=== PATIENT | male | born 1945 | race Caucasian/White ===

== ENCOUNTER 2018-01-13 13:34 | Emergency (ER) | payer OTHER, SELFPAY ==
[2018-01-13] MEDS ORDERED: METHYLPREDNISOLONE 125 MG INJ ONE (13:51)
[2018-01-13] MEDS ORDERED: NA CHLORIDE 0.9% 1,000 ML ONE (13:52)
[2018-01-13] MEDS ORDERED: DIPHENHYDRAMINE 50 MG/ML VIAL ONE (13:52)
--- NOTE | 2018-01-13 16:01 | ER ---
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 Transition of care: patient was not received from another setting of care. Onset: The symptoms/episode began/occurred acutely, suddenly, 1 hour(s) ago. Anaphylaxis evaluation, angioedema beta donovan use. Onset of symptoms was January 13, 2018. Initial Sepsis Screen: Does the patient meet any 2 criteria? No. Patient's initial sepsis screen is negative. Does the patient have a suspected source of infection? No. Patient's initial sepsis screen is negative. Care prior to arrival: None. 13:50 Acuity: KASEY 2 hb 13:50 Method Of Arrival: Ambulatory hb Historical: - Allergies: 13:53 Peanut; tw2 13:53 Sulfa (Sulfonamide Antibiotics); tw2 13:53 amlodipine; tw2 - Home Meds: 13:53 losartan oral oral [Active]; atenolol 25 mg Oral tab .5 tab once daily [Active]; tw2 - PMHx: 13:53 Hypertension; Hyperlipidemia; tw2 - Immunization history:: Adult Immunizations up to date. - Social history:: Smoking status: Patient/guardian denies using tobacco. Screenin:55 Abuse screen: Denies threats or abuse. Denies injuries from another. Nutritional hb screening: No deficits noted. Tuberculosis screening: No symptoms or risk factors identified. Fall Risk None identified. Assessment: 13:46 General: Appears in no apparent distress. obese, Behavior is anxious. Pain: Denies tw2 pain. Neuro: Level of Consciousness is awake, alert, obeys commands, Oriented to person, place, time, situation. Cardiovascular: Denies chest pain, shortness of breath, Heart tones S1 S2 Capillary refill < 3 seconds Patient's skin is warm and dry. Respiratory: Airway is patent Respiratory effort is even, unlabored, Respiratory pattern is regular, symmetrical, Breath sounds are clear bilaterally. Denies cough. Respiratory: GI: No signs and/or symptoms were reported involving the gastrointestinal system. Abdomen is round obese, Bowel sounds present X 4 quads. : No signs and/or symptoms were reported regarding the genitourinary system. EENT: EENT: swelling of lips noted. Derm:. Musculoskeletal: Range of motion: intact in all extremities. 14:52 Reassessment: Patient appears in no apparent distress at this time. No changes from tw2 previously documented assessment. Patient and/or family updated on plan of care and expected duration. Pain level reassessed. Patient is alert, oriented x 3, equal unlabored respirations, skin warm/dry/pink. 15:30 Reassessment: Patient appears in no apparent distress at this time. No changes from hb previously documented assessment. Patient and/or family updated on plan of care and expected duration. Pain level reassessed. Patient is alert, oriented x 3, equal unlabored respirations, skin warm/dry/pink. Vital Signs: 13:55 BP 203 / 91; Pulse 66; Resp 17; Temp 97.9; Pulse Ox 100% on R/A; Pain 0/10; hb 14:52 BP 168 / 74; Pulse 61; Resp 17; Pulse Ox 98% on R/A; tw2 15:30 BP 171 / 81; Pulse 68; Resp 16; Pulse Ox 100% on R/A; Pain 0/10; hb ED Course: 13:38 Patient arrived in ED. mr 13:46 Arm band placed on. tw2 13:50 Maxwell Garland PA is PHCP. jr8 13:50 Adolfo Hercules MD is Attending Physician. jr8 13:50 Patient has correct armband on for positive identification. Bed in low position. Call hb light in reach. Side rails up X 1. 13:50 Inserted saline lock: 18 gauge in right antecubital area, using aseptic technique. hb Blood collected. 13:56 Ginna Patel, CELSA is Primary Nurse. hb 13:59 Triage completed. hb 14:55 No provider procedures requiring assistance completed. tw2 16:10 IV discontinued, intact, bleeding controlled, No redness/swelling at site. Pressure hb dressing applied. Administered Medications: 13:56 Drug: Benadryl 25 mg Route: IVP; Site: right antecubital; hb 15:15 Follow up: Response: No adverse reaction hb 13:56 Drug: SOLU-Medrol 125 mg Route: IVP; Site: right antecubital; hb 15:15 Follow up: Response: No adverse reaction hb 14:26 Drug: Pepcid 20 mg Route: IVP; Site: right antecubital; hb 15:15 Follow up: Response: No adverse reaction hb Outcome: 16:01 Discharge ordered by MD. morel 16:10 Discharged to home ambulatory, with significant other. hb 16:10 Condition: stable 16:10 Discharge instructions given to patient, Instructed on discharge instructions, follow up and referral plans. medication usage, Demonstrated understanding of instructions, follow-up care, medications, Prescriptions given X 1. 16:11 Patient left the ED. 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 hb 14:00 13:45 Transition of care: patient was not received from another setting of care. hb hb 14:00 13:45 Onset: The symptoms/episode began/occurred acutely, suddenly, 1 hour(s) ago, hb hb 14:00 13:45 Anaphylaxis evaluation, angioedema beta donovan use hb hb 14:00 13:45 Onset of symptoms was January 13, 2018 hb hb 14:00 13:45 Initial Sepsis Screen: Does the patient meet any 2 criteria? No. Patient's hb initial sepsis screen is negative. Does the patient have a suspected source of infection? No. Patient's initial sepsis screen is negative. hb 14:00 13:45 Care prior to arrival: None. hb hb 14:00 13:45 Method Of Arrival: Ambulatory hb hb 14:00 13:45 Acuity: KASEY 2 hb hb
--- NOTE | 2018-01-13 16:01 | EDPHYS ---
Physician Documentation [facility] Name: Rolf Hernandez Age: 72 yrs Sex: Male : 1945 Arrival Date: 01/13/2018 Time: 13:38 Bed 2 Private MD: ED Physician Adolfo Hercules HPI: 01/13 14:50 This 72 yrs old Male presents to ER via Ambulatory with complaints of jr8 Allergic Reaction. 14:50 Onset: The symptoms/episode began/occurred acutely, today. Possible causes: Amlodipine jr8 . Severity of symptoms: At their worst the symptoms were moderate in the emergency department the symptoms are unchanged. The patient has not experienced similar symptoms in the past. The patient has not recently seen a physician. Patient stated that he was just started on amlodipine. To first dose today. Started to have lower lip swelling and right sided cheek swelling . Historical: - Allergies: 13:53 Peanut; tw2 13:53 Sulfa (Sulfonamide Antibiotics); tw2 13:53 amlodipine; tw2 - Home Meds: 13:53 losartan oral oral [Active]; atenolol 25 mg Oral tab .5 tab once daily [Active]; tw2 - PMHx: 13:53 Hypertension; Hyperlipidemia; tw2 - Immunization history:: Adult Immunizations up to date. - Social history:: Smoking status: Patient/guardian denies using tobacco. ROS: 14:50 Eyes: Negative for injury, pain, redness, and discharge, ENT: Negative for injury, jr8 pain, and discharge, Neck: Negative for injury, pain, and swelling, Cardiovascular: Negative for chest pain, palpitations, and edema, Respiratory: Negative for shortness of breath, cough, wheezing, and pleuritic chest pain, Abdomen/GI: Negative for abdominal pain, nausea, vomiting, diarrhea, and constipation, Back: Negative for injury and pain, MS/Extremity: Negative for injury and deformity, Skin: Negative for injury, rash, and discoloration, Neuro: Negative for headache, weakness, numbness, tingling, and seizure. Exam: 14:50 Eyes: Pupils equal round and reactive to light, extra-ocular motions intact. Lids and jr8 lashes normal. Conjunctiva and sclera are non-icteric and not injected. Cornea within normal limits. Periorbital areas with no swelling, redness, or edema. ENT: Nares patent. No nasal discharge, no septal abnormalities noted. Tympanic membranes are normal and external auditory canals are clear. Oropharynx with no redness, swelling, or masses, exudates, or evidence of obstruction, uvula midline. Mucous membranes moist. Neck: Trachea midline, no thyromegaly or masses palpated, and no cervical lymphadenopathy. Supple, full range of motion without nuchal rigidity, or vertebral point tenderness. No Meningismus. Cardiovascular: Regular rate and rhythm with a normal S1 and S2. No gallops, murmurs, or rubs. Normal PMI, no JVD. No pulse deficits. Respiratory: Lungs have equal breath sounds bilaterally, clear to auscultation and percussion. No rales, rhonchi or wheezes noted. No increased work of breathing, no retractions or nasal flaring. Abdomen/GI: Soft, non-tender, with normal bowel sounds. No distension or tympany. No guarding or rebound. No evidence of tenderness throughout. Back: No spinal tenderness. No costovertebral tenderness. Full range of motion. Skin: Warm, dry with normal turgor. Normal color with no rashes, no lesions, and no evidence of cellulitis. MS/ Extremity: Pulses equal, no cyanosis. Neurovascular intact. Full, normal range of motion. Neuro: Awake and alert, GCS 15, oriented to person, place, time, and situation. Cranial nerves II-XII grossly intact. Motor strength 5/5 in all extremities. Sensory grossly intact. Cerebellar exam normal. Normal gait. 14:50 Head/face: Noted is swelling, that is moderate, of the lower lip and right cheek near crease of mouth. Vital Signs: 13:55 BP 203 / 91; Pulse 66; Resp 17; Temp 97.9; Pulse Ox 100% on R/A; Pain 0/10; hb 14:52 BP 168 / 74; Pulse 61; Resp 17; Pulse Ox 98% on R/A; tw2 15:30 BP 171 / 81; Pulse 68; Resp 16; Pulse Ox 100% on R/A; Pain 0/10; hb MDM: 13:51 Patient medically screened. [facility] 14:50 Data reviewed: vital signs, nurses notes. Counseling: I had a detailed discussion with Patricia the patient and/or guardian regarding: the historical points, exam findings, and any diagnostic results supporting the discharge/admit diagnosis. ED course: Swelling has decreased. Patient continues to not have throat swelling or tongue swelling. Feeling much better . 15:58 ED course: Patient remains stable in ED. Swelling continues to go down. Strict jr8 precautions to return if it worsens. Otherwise to follow up with PCP tomorrow . 01/13 13:51 Order name: IV; Complete Time: 13:56 jr8 Administered Medications: 13:56 Drug: Benadryl 25 mg Route: IVP; Site: right antecubital; hb 15:15 Follow up: Response: No adverse reaction hb 13:56 Drug: SOLU-Medrol 125 mg Route: IVP; Site: right antecubital; hb 15:15 Follow up: Response: No adverse reaction hb 14:26 Drug: Pepcid 20 mg Route: IVP; Site: right antecubital; hb 15:15 Follow up: Response: No adverse reaction hb Disposition: 16:25 Co-signature as Attending Physician, Adolfo Hercules MD. rn Disposition: 01/13/18 16:01 Discharged to Home. Impression: Angioneurotic edema. - Condition is Stable. - Discharge Instructions: Angioedema. - Prescriptions for Prednisone 20 mg Oral Tablet - take 2 tablet by ORAL route once daily for 5 days; 10 tablet. - Medication Reconciliation Form, Thank You Letter, Antibiotic Education, Prescription Opioid Use form. - Follow up: Private Physician; When: Tomorrow; Reason: Recheck today's complaints, Continuance of care, Re-evaluation by your physician. - Problem is new. - Symptoms have improved. - Notes: Pepcid over the counter. 20 mg by mouth twice a day Benadryl 25 mg by mouth throughout night Q4-6 hrs Signatures: Adolfo Hercules MD MD rn Roszak, Josh, PA PA jr8 Ginna Patel RN RN hb Mini Bynum RN RN tw2 Corrections: (The following items were deleted from the chart) 16:11 16:01 01/13/2018 16:01 Discharged to Home. Impression: Angioneurotic edema. Condition hb is Stable. Forms are Medication Reconciliation Form, Thank You Letter, Antibiotic Education, Prescription Opioid Use. Follow up: Private Physician; When: Tomorrow; Reason: Recheck today's complaints, Continuance of care, Re-evaluation by your physician. Problem is new. Symptoms have improved. jr8
[2018-01-13 16:44] VITALS: TEMP 97.9
[2018-01-13 16:46] VITALS: BP 171/81; O2SAT 100
== END 2018-01-13 16:11 | disposition home or self-care (01) ==
LOC: ER 13:34
DX: T78.3XXA Angioneurotic edema, initial encounter (principal); I10 Essential (primary) hypertension; E78.5 Hyperlipidemia, unspecified; Z88.2 Allergy status to sulfonamides; Z88.8 Allergy status to other drugs, medicaments and biological substances; Z91.010 Allergy to peanuts
CPT/HCPCS: 96374; 96375; 99284; J2930; J7030

== ENCOUNTER 2018-01-28 10:10 | Emergency (ER) | payer OTHER, SELFPAY ==
--- NOTE | 2018-01-28 12:08 | RAD REPORT ---
EXAM DESCRIPTION: RAD - Foot Left 3 View - 01/28/2018 11:22 am CLINICAL HISTORY: Foot pain, fall COMPARISON: Left ankle images July 2012 FINDINGS: Nondisplaced, nonangulated fractures are present at the second-fifth metatarsal shaft-head junction. No pathologic process at these fracture sites. Patient has fracture changes as well across the base of the first- fourth metatarsals. Articular surfaces are not involved in the second- fourth metatarsals. At the first metatarsal fracture does extend to the articular surface. . These fracture s are more uncertain in date. There does appear to be some remodeling change with incomplete healing. These are favored to be subacute with the distal fractures acute. Degenerative changes are present in the IP joints of the toes. Degenerative changes are present invol ving the second and third MTP joints. There is joint space narrowing at the first MTP joint. The cuneiform and cuboid bones are intact. Tarsal navicular bone is generally intact as well. Patient has gross destructive change at the ankle joint. There are innumerable small bony fragments along th e posterior and medial margin of the tibia. There is significant bone loss at the distal fibula. No n ormal talus seen. Talus is likely dislocated or displaced to the lateral margin of the joint space. T he tibia articulates with the calcaneus. There is deformity and large concave contour to the anterior superior margin of the calcaneus. There is widening of the joint space between the calcaneus and dinorah us fragments with the cuboid and navicular bones. Patient has a large plantar spur. Prominent soft tissue swelling around the foot and ankle. No air or foreign body. IMPRESSION: Nondisplaced, nonangulated fractures of the second- fifth metatarsals at the shaft - hea d junction. These are believed to be acute. Fractures at the base of the first- fourth metatarsals with the first metatarsal fracture involving t he articular surface. Age is less definitive but probably subacute or chronic and incompletely healed . Charcot joint destructive changes at the ankle. Talus is deformed in shape and laterally displaced. D eformed articular surface of the tibia articulates with concave deformity of the anterior superior ca lcaneus.
--- NOTE | 2018-01-28 12:43 | EDPHYS ---
Physician Documentation [facility] Name: Rolf Hernandez Age: 72 yrs Sex: Male : 1945 Arrival Date: 01/28/2018 Time: 10:13 Bed 13 Private MD: Out, [facility] ED Physician Gregory Alarcon HPI: 01/28 11:55 This 72 yrs old Male presents to ER via Wheelchair with complaints of Foot jr8 Injury. 11:55 The patient presents with swelling, bruising . The complaints affect the left foot. jr8 Context: The problem was sustained at home, resulted from the patient falling. Onset: The symptoms/episode began/occurred acutely, 1 week(s) ago. Modifying factors: The symptoms are alleviated by nothing. the symptoms are aggravated by nothing. Associated signs and symptoms: The patient has no apparent associated signs or symptoms. Severity of symptoms: At their worst the symptoms were mild, in the emergency department the symptoms are unchanged. The patient has not experienced similar symptoms in the past. The patient has not recently seen a physician. Patient stated that the swelling and bruising has gone down. No pain. Has some skin tears on top of foot that showed up from wearing sock. Wants to make sure those tears do not get infected. History of cellulitis with osteo in past . Historical: - Allergies: 10:25 amlodipine; aj 10:25 Peanut; aj 10:25 Sulfa (Sulfonamide Antibiotics); aj - Home Meds: 10:25 atenolol 25 mg Oral tab 0.5 tab once daily [Active]; losartan Oral [Active]; aj - PMHx: 10:25 Hypertension; Hyperlipidemia; aj - Immunization history:: Adult Immunizations up to date. - Social history:: Smoking status: Patient/guardian denies using tobacco. - Ebola Screening: : Patient negative for fever greater than or equal to 101.5 degrees Fahrenheit, and additional compatible Ebola Virus Disease symptoms Patient denies exposure to infectious person Patient denies travel to an Ebola-affected area in the 21 days before illness onset. ROS: 11:55 Eyes: Negative for injury, pain, redness, and discharge, ENT: Negative for injury, jr8 pain, and discharge, Neck: Negative for injury, pain, and swelling, Cardiovascular: Negative for chest pain, palpitations, and edema, Respiratory: Negative for shortness of breath, cough, wheezing, and pleuritic chest pain, Abdomen/GI: Negative for abdominal pain, nausea, vomiting, diarrhea, and constipation, Back: Negative for injury and pain, Neuro: Negative for headache, weakness, numbness, tingling, and seizure. 11:55 MS/extremity: Positive for ecchymosis, swelling, of the left foot. 11:55 Skin: Positive for avulsion, of the dorsum left foot . Exam: 11:55 Cardiovascular: Regular rate and rhythm with a normal S1 and S2. No gallops, murmurs, jr8 or rubs. Normal PMI, no JVD. No pulse deficits. Respiratory: Lungs have equal breath sounds bilaterally, clear to auscultation and percussion. No rales, rhonchi or wheezes noted. No increased work of breathing, no retractions or nasal flaring. MS/ Extremity: Pulses equal, no cyanosis. Neurovascular intact. Full, normal range of motion. Neuro: Awake and alert, GCS 15, oriented to person, place, time, and situation. Cranial nerves II-XII grossly intact. Motor strength 5/5 in all extremities. Sensory grossly intact. Cerebellar exam normal. Normal gait. 11:55 Skin: Patient has swollen ecchymotic left foot. Small skin avulsion's noted to dorsum of foot. Mild erythema to red foot noted. Non tender to palpation. Minimal warmth felt . Vital Signs: 10:25 BP 145 / 76; Pulse 68; Resp 19; Temp 97.6; Pulse Ox 99% on R/A; Weight 104.33 kg; aj Height 6 ft. 2 in. (187.96 cm); 12:06 BP 163 / 66; Pulse 64; Resp 18; Pulse Ox 100% on R/A; ae1 13:05 BP 163 / 66; Pulse 64; Resp 18; Pulse Ox 99% on R/A; ae1 10:25 Body Mass Index 29.53 (104.33 kg, 187.96 cm) aj MDM: 10:28 Patient medically screened. jr8 12:37 Data reviewed: vital signs, nurses notes, radiologic studies, plain films, and as a jr8 result, I will discharge patient. Data interpreted: Pulse oximetry: on room air is 100 %. Interpretation: normal. Counseling: I had a detailed discussion with the patient and/or guardian regarding: the historical points, exam findings, and any diagnostic results supporting the discharge/admit diagnosis, radiology results, the need for outpatient follow up, a orthopedic surgeon, to return to the emergency department if symptoms worsen or persist or if there are any questions or concerns that arise at home. ED course: Patient has ortho boot for that foot at home. Will let him go home and utilize that. To follow up with Ortho . 01/28 10:54 Order name: XRAY Foot LEFT 3 View; Complete Time: 12:10 jr8 01/28 10:54 Order name: Wound Care; Complete Time: 11:35 jr8 01/28 10:54 Order name: Wound dressing; Complete Time: 12:04 jr8 Administered Medications: No medications were administered Disposition: 01/28/18 12:42 Discharged to Home. Impression: Fracture of left metatarsals . - Condition is Stable. - Discharge Instructions: Metatarsal Fracture, Undisplaced. - Prescriptions for Keflex 500 mg Oral Capsule - take 1 capsule by ORAL route every 8 hours for 10 days; 30 capsule. - Medication Reconciliation Form, Thank You Letter, Antibiotic Education, Prescription Opioid Use form. - Follow up: Private Physician; When: 2 - 3 days; Reason: Recheck today's complaints, Continuance of care, Re-evaluation by your physician. - Problem is new. - Symptoms have improved. Addendum: 01/30/2018 13:27 Co-signature as Attending Physician, Gregory Alarcon MD. g s Signatures: Dispatcher [employer] EDJanine Nelson RN RN aj Roszak, Josh, PA PA jr8 Isai Corado RN RN ae1 Gregory Alarcon MD MD Corrections: (The following items were deleted from the chart) 01/28 12:59 12:30 Splint ordered. jr8 ae1 13:06 12:42 01/28/2018 12:42 Discharged to Home. Impression: Fracture of left metatarsals . ae1 Condition is Stable. Forms are Medication Reconciliation Form, Thank You Letter, Antibiotic Education, Prescription Opioid Use. Follow up: Private Physician; When: 2 - 3 days; Reason: Recheck today's complaints, Continuance of care, Re-evaluation by your physician. Problem is new. Symptoms have improved. jr8
--- NOTE | 2018-01-28 12:43 | ER ---
Nurse's Notes [facility] Name: Rolf Hernandez Age: 72 yrs Sex: Male : 1945 Arrival Date: 01/28/2018 Time: 10:13 Bed 13 Private MD: Out, [facility] Diagnosis: Fracture of left metatarsals Presentation: 01/28 10:22 Presenting complaint: Patient states: Sent by [place] [facility] for evaluation of left foot aj after patient slip and fall 1 week ago. Patient reports bruising has improved but abrasions to top of foot are not getting better. Transition of care: patient was not received from another setting of care. Onset of symptoms was January 19, 2018. Risk Assessment: Do you want to hurt yourself or someone else? Patient reports no desire to harm self or others. Care prior to arrival: None. 10:22 Method Of Arrival: Wheelchair aj 10:22 Acuity: KASEY 3 aj 11:07 Initial Sepsis Screen: Does the patient meet any 2 criteria? No. Patient's initial ae1 sepsis screen is negative. Does the patient have a suspected source of infection? Yes: Skin breakdown/wound. Triage Assessment: 10:25 General: Appears in no apparent distress. comfortable, Behavior is calm, cooperative, aj appropriate for age. Pain: Denies pain. Neuro: Level of Consciousness is awake, alert, obeys commands, Oriented to person, place, time, situation, Appropriate for age. Respiratory: Airway is patent Respiratory effort is even, unlabored, Respiratory pattern is regular, symmetrical. Derm: Skin is intact, is healthy with good turgor, Skin is pink, warm \T\ dry. normal. Musculoskeletal: Reports Swelling in left foot. Injury Description: Abrasion sustained to left foot. Historical: - Allergies: 10:25 amlodipine; aj 10:25 Peanut; aj 10:25 Sulfa (Sulfonamide Antibiotics); aj - Home Meds: 10:25 atenolol 25 mg Oral tab 0.5 tab once daily [Active]; losartan Oral [Active]; aj - PMHx: 10:25 Hypertension; Hyperlipidemia; aj - Immunization history:: Adult Immunizations up to date. - Social history:: Smoking status: Patient/guardian denies using tobacco. - Ebola Screening: : Patient negative for fever greater than or equal to 101.5 degrees Fahrenheit, and additional compatible Ebola Virus Disease symptoms Patient denies exposure to infectious person Patient denies travel to an Ebola-affected area in the 21 days before illness onset. Screenin:06 Abuse screen: Denies threats or abuse. Denies injuries from another. Nutritional ae1 screening: No deficits noted. Tuberculosis screening: No symptoms or risk factors identified. Fall Risk Fall in past 12 months (25 points). Secondary diagnosis (15 points) impaired mobility, No IV (0 pts). Ambulatory Aid- Crutches/Cane/Walker (15 pts). Gait- Impaired (20 pts.). Mental Status- Oriented to own ability (0 pts). Assessment: 10:50 General: Appears in no apparent distress. uncomfortable, Behavior is calm, cooperative. ae1 Pain: Denies pain. Neuro: Level of Consciousness is awake, alert, obeys commands, Oriented to person, place, time, situation. Cardiovascular: Heart tones S1 S2 present. Respiratory: Airway is patent Breath sounds are clear bilaterally. GI: No signs and/or symptoms were reported involving the gastrointestinal system. : No signs and/or symptoms were reported regarding the genitourinary system. EENT: No signs and/or symptoms were reported regarding the EENT system. Derm: Wound noted left foot Wound is Moderate swelling, redness and mild warmth to the left foot. Several dry, healing abrasions to the left dorsal side of the foot. Musculoskeletal: Swelling present in right foot and left foot. 11:03 Reassessment: Radiology at bedside obtaining imaging. ae1 Vital Signs: 10:25 BP 145 / 76; Pulse 68; Resp 19; Temp 97.6; Pulse Ox 99% on R/A; Weight 104.33 kg; aj Height 6 ft. 2 in. (187.96 cm); 12:06 BP 163 / 66; Pulse 64; Resp 18; Pulse Ox 100% on R/A; ae1 13:05 BP 163 / 66; Pulse 64; Resp 18; Pulse Ox 99% on R/A; ae1 10:25 Body Mass Index 29.53 (104.33 kg, 187.96 cm) aj ED Course: 10:13 Patient arrived in ED. sb2 10:13 Out, [facility] is Private Physician. sb2 10:24 Triage completed. aj 10:25 Arm band placed on right wrist. Patient placed in an exam room. aj 10:27 Maxwell Garland PA is PHCP. jr8 10:27 Gregory Alarcon MD is Attending Physician. jr8 10:35 Isai Corado, RN is Primary Nurse. ae1 11:07 Bed in low position. Call light in reach. Side rails up X 1. Adult w/ patient. Pulse ox ae1 on. NIBP on. 11:22 XRAY Foot LEFT 3 View In Process Unspecified. EDMS 12:07 Dressings: Kerlix X 2; left foot non-adherent dressing x 1 left foot Cleansed left foot ae1 with sterile saline and Hibiclens. 13:05 No provider procedures requiring assistance completed. Patient did not have IV access ae1 during this emergency room visit. Administered Medications: No medications were administered Outcome: 12:42 Discharge ordered by . jr8 13:06 Discharged to home via wheelchair, with significant other. ae1 13:06 Condition: stable 13:06 Discharge instructions given to patient, significant other, Instructed on discharge instructions, follow up and referral plans. medication usage, Demonstrated understanding of instructions, Prescriptions given X 1. 13:06 Patient left the ED. ae1 Signatures: Dispatcher [employer] EDMS Tamela Hernandez RN RN dm5 Janine Mcdaniel RN RN aj Roszak, Josh, PA PA jr8 Isai Corado, RN RN ae1 Aleida Flood sb2 Corrections: (The following items were deleted from the chart) 12:06 12:04 Dressings: Kerlix X 2; lateral aspect of left calf, left lateral ankle, lateral dm5 aspect of left foot, left Achilles, left heel, left medial ankle, medial aspect of left foot, anterior aspect of left ankle and dorsum of left foot non-adherent dressing x 1 left foot Cleansed left foot with Hibiclens and sterile saline. dm5 12:07 12:05 BP 163 / 66; Pulse 67bpm; Resp 18bpm; Pulse Ox 98% RA; dm5 ae1
[2018-01-28 13:10] VITALS: TEMP 97.6
[2018-01-28 13:11] VITALS: BP 163/66
[2018-01-28 13:12] VITALS: O2SAT 99
== END 2018-01-28 13:06 | disposition home or self-care (01) ==
LOC: ER 10:10
DX: S92.302A Fracture of unspecified metatarsal bone(s), left foot, initial encounter for closed fracture (principal); W19.XXXA Unspecified fall, initial encounter; Y93.9 Activity, unspecified; Y92.009 Unspecified place in unspecified non-institutional (private) residence as the place of occurrence of the external cause; Z88.2 Allergy status to sulfonamides; Z88.8 Allergy status to other drugs, medicaments and biological substances; Z91.010 Allergy to peanuts; I10 Essential (primary) hypertension; E78.5 Hyperlipidemia, unspecified
CPT/HCPCS: 99283

== ENCOUNTER 2018-07-25 16:05 | Emergency (ER) | payer OTHER ==
[2018-07-25] MEDS ORDERED: DIPHENHYDRAMINE 50 MG/ML VIAL ONE (17:48)
[2018-07-25] MEDS ORDERED: METHYLPREDNISOLONE 125 MG INJ ONE (17:48)
[2018-07-25] MEDS ORDERED: FAMOTIDINE 20 MG/2 ML VIAL IV ONE (17:48)
--- NOTE | 2018-07-25 18:28 | ER ---
Nurse's Notes [facility] Name: Rolf Hernandez Age: 73 yrs Sex: Male : 1945 Arrival Date: 07/25/2018 Time: 16:07 Bed 2 Private MD: Out, [facility] Diagnosis: Angioedema Presentation: 07/25 16:09 Presenting complaint: Patient states: Swelling to right upper lip and cheek that sg started about 0345 this morning but has gotten worse today, last does of benadryl taken at 1330 today, no relief, pt denies any changes in mediation or diet, unsure what has caused the swelling, denies any insect bites, Denies SOB or CP at this time,denies FEVER/N/V/Diarrhea. Transition of care: patient was not received from another setting of care. Onset: The symptoms/episode began/occurred gradually, 13 hour(s) ago. Anaphylaxis evaluation, no signs or symptoms of anaphylaxis were noted. Onset of symptoms was July 25, 2018. Risk Assessment: Do you want to hurt yourself or someone else? Patient reports no desire to harm self or others. Initial Sepsis Screen: Does the patient meet any 2 criteria? No. Patient's initial sepsis screen is negative. Does the patient have a suspected source of infection? No. Patient's initial sepsis screen is negative. Care prior to arrival: None. 16:09 Method Of Arrival: Ambulatory 16:09 Acuity: KASEY 4 sg Historical: - Allergies: 16:12 amlodipine; sg 16:12 Peanut; sg 16:12 Sulfa (Sulfonamide Antibiotics); sg - Home Meds: 16:12 atenolol 25 mg Oral tab 0.5 tab once daily [Active]; losartan Oral [Active]; sg - PMHx: 16:12 Hyperlipidemia; Hypertension; sg - Immunization history:: Adult Immunizations up to date. - Social history:: Smoking status: Patient/guardian denies using tobacco. - Ebola Screening: : Patient negative for fever greater than or equal to 101.5 degrees Fahrenheit, and additional compatible Ebola Virus Disease symptoms Patient denies exposure to infectious person Patient denies travel to an Ebola-affected area in the 21 days before illness onset No symptoms or risks identified at this time. - Family history:: not pertinent. - Hospitalizations: : No recent hospitalization is reported. Screenin:53 Abuse screen: Denies threats or abuse. Denies injuries from another. Nutritional jl7 screening: No deficits noted. Tuberculosis screening: No symptoms or risk factors identified. Fall Risk IV access (20 points). Assessment: 17:30 General: Appears in no apparent distress. uncomfortable, Behavior is calm, cooperative, jl7 appropriate for age. Pain: Denies pain. Neuro: Level of Consciousness is awake, alert, obeys commands, Oriented to person, place, time, situation. Cardiovascular: Denies chest pain, Heart tones S1 S2 present Patient's skin is warm and dry. Respiratory: Airway is patent Respiratory effort is even, unlabored, Respiratory pattern is regular, symmetrical, Breath sounds are clear bilaterally. Denies shortness of breath. GI: No signs and/or symptoms were reported involving the gastrointestinal system. : No signs and/or symptoms were reported regarding the genitourinary system. EENT: No signs and/or symptoms were reported regarding the EENT system. Derm: Right sided upper and lower lip swelling. 18:18 Reassessment: Patient and/or family updated on plan of care and expected duration. Pain jl7 level reassessed. Patient is alert, oriented x 3, equal unlabored respirations, skin warm/dry/pink. Patient states symptoms have improved. Vital Signs: 16:11 BP 187 / 79; Pulse 88; Resp 18; Temp 97.7; Pulse Ox 100% on R/A; Weight 95.25 kg (R); sg Height 6 ft. 2 in. (187.96 cm); Pain 4/10; 17:53 BP 163 / 79; Pulse 76; Resp 16 S; Pulse Ox 100% on R/A; jl7 18:18 BP 160 / 75; Pulse 75; Resp 16 S; Pulse Ox 100% on R/A; jl7 16:11 Body Mass Index 26.96 (95.25 kg, 187.96 cm) ED Course: 16:07 Patient arrived in ED. sb2 16:08 Out, [facility] is Private Physician. sb2 16:09 Arm band placed on. sg 16:11 Triage completed. sg 17:15 Adolfo Hercules MD is Attending Physician. rn 17:38 Sky Lacy RN is Primary Nurse. jl7 17:40 Inserted saline lock: 20 gauge in right antecubital area, using aseptic technique. jl7 17:53 Patient has correct armband on for positive identification. Bed in low position. Call jl7 light in reach. Side rails up X 1. Pulse ox on. NIBP on. 18:18 No provider procedures requiring assistance completed. jl7 18:33 IV discontinued, intact, bleeding controlled, No redness/swelling at site. Pressure jl7 dressing applied. Administered Medications: 17:45 Drug: SOLU-Medrol 125 mg Route: IVP; Site: right antecubital; jl7 18:15 Follow up: Response: No adverse reaction; Marked relief of symptoms jl7 17:46 Drug: Benadryl 25 mg Route: IVP; Site: right antecubital; jl7 18:15 Follow up: Response: No adverse reaction; Marked relief of symptoms jl7 17:50 Drug: Pepcid 20 mg Route: IVP; Site: right antecubital; jl7 18:15 Follow up: Response: No adverse reaction; Marked relief of symptoms jl7 Outcome: 18:27 Discharge ordered by . rn 18:33 Discharged to home ambulatory. jl7 18:33 Condition: stable 18:33 Discharge instructions given to patient, family, Instructed on discharge instructions, follow up and referral plans. medication usage, Demonstrated understanding of instructions, follow-up care, medications, Prescriptions given X 1. 18:33 Patient left the ED. jl7 Signatures: Jean Carlos Burnham RN RN Adolfo Hercules MD MD rn Leal, Jahala, RN RN jl7 Aleida Flood2
--- NOTE | 2018-07-25 18:28 | EDPHYS ---
Physician Documentation [facility] Name: Rolf Hernandez Age: 73 yrs Sex: Male : 1945 Arrival Date: 07/25/2018 Time: 16:07 Bed 2 Private MD: Out, [facility] ED Physician Adolfo Hercules HPI: 07/25 17:26 This 73 yrs old Male presents to ER via Ambulatory with complaints of rn Allergic Reaction. 17:26 The patient presents with localized swelling, swelling of the lips. Onset: The rn symptoms/episode began/occurred yesterday. Associated signs and symptoms: Pertinent positives: swelling, Pertinent negatives: abdominal pain, Altered mental status chest pain, dysphagia, fever, hives, rash, shortness of breath, Syncope vomiting. Possible causes: ARB. Severity of symptoms: At their worst the symptoms were mild in the emergency department the symptoms have improved. The patient has experienced a previous episode. REports has happened once before, was blamed on blood pressure medication, switched from lisinopril to losartan, has been on it for some time, no rash, no new food/medication/change, no sob, no tongue swelling, no vomiting/abd pain, began yesterday and now slightly improved. . Historical: - Allergies: 16:12 amlodipine; sg 16:12 Peanut; sg 16:12 Sulfa (Sulfonamide Antibiotics); sg - Home Meds: 16:12 atenolol 25 mg Oral tab 0.5 tab once daily [Active]; losartan Oral [Active]; sg - PMHx: 16:12 Hyperlipidemia; Hypertension; sg - Immunization history:: Adult Immunizations up to date. - Social history:: Smoking status: Patient/guardian denies using tobacco. - Ebola Screening: : Patient negative for fever greater than or equal to 101.5 degrees Fahrenheit, and additional compatible Ebola Virus Disease symptoms Patient denies exposure to infectious person Patient denies travel to an Ebola-affected area in the 21 days before illness onset No symptoms or risks identified at this time. - Family history:: not pertinent. - Hospitalizations: : No recent hospitalization is reported. ROS: 17:26 Constitutional: Negative for fever, chills, and weight loss, Eyes: Negative for injury, rn pain, redness, and discharge, ENT: + lip swelling Neck: Negative for injury, pain, and swelling, Cardiovascular: Negative for chest pain, palpitations, and edema, Respiratory: Negative for shortness of breath, cough, wheezing, and pleuritic chest pain, Abdomen/GI: Negative for abdominal pain, nausea, vomiting, diarrhea, and constipation, MS/Extremity: Negative for injury and deformity, Skin: Negative for injury, rash, and discoloration, Neuro: Negative for headache, weakness, numbness, tingling, and seizure. Exam: 17:26 Constitutional: This is a well developed, well nourished patient who is awake, alert, rn and in no acute distress. Head/Face: Normocephalic, atraumatic. Eyes: Pupils equal round and reactive to light, extra-ocular motions intact. Lids and lashes normal. Conjunctiva and sclera are non-icteric and not injected. Cornea within normal limits. Periorbital areas with no swelling, redness, or edema. ENT: + upper lip swelling and edema, no tongue swelling Respiratory: Lungs have equal breath sounds bilaterally, clear to auscultation and percussion. No rales, rhonchi or wheezes noted. No increased work of breathing, no retractions or nasal flaring. Skin: Warm, dry with normal turgor. Normal color with no rashes, no lesions, and no evidence of cellulitis. Neuro: Awake and alert, GCS 15, oriented to person, place, time, and situation. Cranial nerves II-XII grossly intact. Motor strength 5/5 in all extremities. Sensory grossly intact. Cerebellar exam normal. Normal gait. Vital Signs: 16:11 BP 187 / 79; Pulse 88; Resp 18; Temp 97.7; Pulse Ox 100% on R/A; Weight 95.25 kg (R); sg Height 6 ft. 2 in. (187.96 cm); Pain 4/10; 17:53 BP 163 / 79; Pulse 76; Resp 16 S; Pulse Ox 100% on R/A; jl7 18:18 BP 160 / 75; Pulse 75; Resp 16 S; Pulse Ox 100% on R/A; jl7 16:11 Body Mass Index 26.96 (95.25 kg, 187.96 cm) sg MDM: 17:15 Patient medically screened. rn 18:25 Differential diagnosis: angioedema. Data reviewed: vital signs, nurses notes, and as a rn result, I will discharge patient. Counseling: I had a detailed discussion with the patient and/or guardian regarding: the historical points, exam findings, and any diagnostic results supporting the discharge/admit diagnosis, the need for outpatient follow up, to return to the emergency department if symptoms worsen or persist or if there are any questions or concerns that arise at home. Response to treatment: the patient's symptoms have markedly improved after treatment, and as a result, I will discharge patient. Special discussion: I discussed with the patient/guardian in detail that at this point there is no indication for admission to the hospital. It is understood, however, that if the symptoms persist or worsen the patient needs to return immediately for re-evaluation. Based on the history and exam findings, there is no indication for further emergent testing or inpatient evaluation. I discussed with the patient/guardian the need to see the primary care provider for further evaluation of the symptoms. ED course: Swelling improved/decreased shortly after steroids/benadryl, symptoms present since yesterday and improving, will stop losartan and dc with steroids/benadryl and pcp f/u. Return precautions given and understood. Has had this before when had ACEI angioedema, to watch over him and low threshold for return.. 07/25 17:25 Order name: IV Start; Complete Time: 17:50 rn Administered Medications: 17:45 Drug: SOLU-Medrol 125 mg Route: IVP; Site: right antecubital; jl7 18:15 Follow up: Response: No adverse reaction; Marked relief of symptoms jl7 17:46 Drug: Benadryl 25 mg Route: IVP; Site: right antecubital; jl7 18:15 Follow up: Response: No adverse reaction; Marked relief of symptoms jl7 17:50 Drug: Pepcid 20 mg Route: IVP; Site: right antecubital; jl7 18:15 Follow up: Response: No adverse reaction; Marked relief of symptoms jl7 Disposition: 07/25/18 18:27 Discharged to Home. Impression: Angioedema. - Condition is Stable. - Discharge Instructions: Angioedema. - Prescriptions for Prednisone 20 mg Oral Tablet - take 3 tablet by ORAL route once daily for 5 days; 15 tablet. - Medication Reconciliation Form, Thank You Letter, Antibiotic Education, Prescription Opioid Use form. - Follow up: Private Physician; When: As needed; Reason: Recheck today's complaints, Re-evaluation by your physician. - Problem is new. - Symptoms have improved. Signatures: Jean Carlos Burnham RN RN sg Nieto, Roman, MD MD rn Leal, Jahala, RN RN jl7 Corrections: (The following items were deleted from the chart) 18:33 18:27 07/25/2018 18:27 Discharged to Home. Impression: Angioedema. Condition is Stable. jl7 Forms are Medication Reconciliation Form, Thank You Letter, Antibiotic Education, Prescription Opioid Use. Follow up: Private Physician; When: As needed; Reason: Recheck today's complaints, Re-evaluation by your physician. Problem is new. Symptoms have improved. rn
[2018-07-25 23:45] VITALS: TEMP 97.7; O2SAT 100
[2018-07-25 23:47] VITALS: BP 160/75
== END 2018-07-25 18:33 | disposition home or self-care (01) ==
LOC: ER 16:05
DX: T78.3XXA Angioneurotic edema, initial encounter (principal); I10 Essential (primary) hypertension; E78.5 Hyperlipidemia, unspecified; Z79.899 Other long term (current) drug therapy
CPT/HCPCS: 96374; 96375; 99284; J2930

== ENCOUNTER 2021-07-23 08:44 | Emergency (ER) | payer OTHER ==
[2021-07-23] MEDS ORDERED: NA CHLORIDE 0.9% 1,000 ML ONE (09:10)
[2021-07-23 09:29] LABS: Absolute Lymphocytes (CBC) 0.6 K/uL (0.7-4.9); Basophils % 0.6 % (0-1.3); Hematocrit 42.7 % (39.6-49.0); Lymphocytes % 5.4 % (15.3-44.8); MPV 6.3 fL (7.6-11.3); RBC Red Blood Cell Count 4.92 M/uL (4.33-5.43)
[2021-07-23 09:44] LABS: Potassium 4.4 mmol/L (3.5-5.1)
--- NOTE | 2021-07-23 10:02 | RAD REPORT ---
EXAM DESCRIPTION: CT - Stone Protocol - 07/23/2021 9:49 am CLINICAL HISTORY: back pain COMPARISON: No comparisons TECHNIQUE: Axial 3 mm thick images were obtained without oral or IV contrast. The [id number] span s the entirety of the system including uppermost abdomen and lung bases. All CT scans are performed using dose optimization technique as appropriate and may include automated exposure control or mA/KV adjustment according to patient size. FINDINGS: No hydronephrosis is present and no obstructing ureteral calculi. A 5 millimeter calcifica tion in the right renal hilum is suspected to be vascular but could be within a calyx without causing focal dilatation. No suspicious renal masses. Isodense masses and pyelonephritis are not excluded on a stone protocol CT scan. No significant adrenal finding. No urinary bladder suspicious finding. Liver shows a lobulated capsule contour. In the lateral mid and upper right lobe segment VIII there i s an ill-defined 7.5 centimeter low-density mass suspicious for malignant process. Mass is not fully assessed on a noncontrast study. No other liver lesion confirmed. Left lobe is relatively prominent. Collective findings may indicate cirrhosis with onset of hepatocellular carcinoma. No splenomegaly or focal splenic finding. No acute pancreatic process. At least 1 small gallstone is seen near the neck of a normal-sized gallbladder. No biliary tree dilatation. Sigmoid diverticulosis is present without diverticulitis. No acute GI findings seen. Small amount of ascites present. There is no free air or pneumatosis. No hernia, mass or bulky lymphadenopathy noted. Disc and bone degenerative changes are present. Slight wedging of the T10 and L1 vertebral bodies not ed without an acute fracture component identifiable. No clearly pathologic bone finding seen. Advance d degenerative change seen in the disc, endplates and facet joints at L5-S1. IMPRESSION: No hydronephrosis, obstructing calculus or acute finding identified. Large mass lesion in the right lobe liver at least 7 cm in size. Liver shows a nodular capsule contou r. 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 Small amount of ascites. No acute GI process. Isodense masses and pyelonephritis are not excluded on stone protocol technique.
[2021-07-23 10:20] LABS: Blood Morphology Comment NOT SEEN (NOT SEEN); Platelet Estimate ADEQ; White Blood Cell Scan OK (OK)
--- NOTE | 2021-07-23 10:30 | EDPHYS ---
Physician Documentation [facility] Name: Rolf Hernandez Age: 76 yrs Sex: Male : 1945 Arrival Date: 07/23/2021 Time: 08:46 Bed 15 Private MD: ED Physician Adolfo Hercules HPI: 07/23 09:06 This 76 yrs old Male presents to ER via Wheelchair with complaints of Back rn Pain. 09:06 The patient presents with pain that is acute, with no known mechanism of injury. The rn symptoms are located in the low back. Onset: The symptoms/episode began/occurred 3 day(s) ago. The pain does not radiate. Associated signs and symptoms: Pertinent positives: constipation, Pertinent negatives: abdominal pain, chest pain, fever, hematuria, incontinence, nausea, numbness, tingling, urinary retention, vomiting. Modifying factors: The patient symptoms are alleviated by remaining still, the patient symptoms are aggravated by any movement. Severity of symptoms: At their worst the symptoms were moderate, in the emergency department the symptoms are unchanged. The patient has not experienced similar symptoms in the past. The patient has not recently seen a physician. Patient reports low back pain for the last 3 days, no direct injury or fall. Reports improves when not moving, but worse with movement. Is ambulatory and able to go up and down flight of stairs to go up to bedroom. States has been concerned about using the bathroom and ambulating so hasn't been eating or drinking much and feels dehydrated as well as constipation. No fever. No urinary symptoms.. Historical: - Allergies: 08:54 amlodipine; ll1 08:54 Peanut; ll1 08:54 Sulfa (Sulfonamide Antibiotics); ll1 - PMHx: 08:54 Hyperlipidemia; Hypertension; ll1 - Immunization history:: Client reports receiving the 2nd dose of the Covid vaccine. - Social history:: Smoking status: Patient denies any tobacco usage or history of. - Family history:: not pertinent. - Hospitalizations: : No recent hospitalization is reported. ROS: 09:06 Constitutional: Negative for fever, chills, and weight loss, Eyes: Negative for injury, rn pain, redness, and discharge, Neck: Negative for injury, pain, and swelling, Cardiovascular: Negative for chest pain, palpitations, and edema, Respiratory: Negative for shortness of breath, cough, wheezing, and pleuritic chest pain, Abdomen/GI: Negative for abdominal pain, nausea, vomiting, diarrhea, and constipation, Back: Negative for injury : Negative for injury, bleeding, discharge, and swelling, MS/Extremity: Negative for injury and deformity, Skin: Negative for injury, rash, and discoloration, Neuro: Negative for headache, weakness, numbness, tingling, and seizure. 09:06 All other systems are negative. Exam: 09:06 Constitutional: This is a well developed, well nourished patient who is awake, alert, rn and in no acute distress. Head/Face: Normocephalic, atraumatic. Cardiovascular: Regular rate and rhythm. No pulse deficits. Respiratory: No increased work of breathing, no retractions or nasal flaring. Abdomen/GI: Soft, non-tender, no masses, no peritoneal signs Skin: Warm, dry with normal turgor. Normal color with no rashes, no lesions, and no evidence of cellulitis. MS/ Extremity: Pulses equal, no cyanosis. Neurovascular intact. Full, normal range of motion. Equal circumference. Neuro: Awake and alert, GCS 15, oriented to person, place, time, and situation. Cranial nerves II-XII grossly intact. Motor strength 4/5 in all extremities. Sensory grossly intact. Cerebellar exam normal. Vital Signs: 08:55 BP 152 / 71; Pulse 98; Resp 20; Temp 97.6; Pulse Ox 100% ; Weight 99.79 kg; Height 6 ll1 ft. 2 in. (187.96 cm); 11:30 BP 138 / ???; Pulse 79; Resp 20; Pulse Ox 98% ; sm5 08:55 Body Mass Index 28.25 (99.79 kg, 187.96 cm) ll1 MDM: 08:52 Patient medically screened. rn 10:24 Differential diagnosis: arthritis, Fatigue Hydronephrosis Metastatic Disease Neoplasm rn Osteoarthritis spinal injury, sprain, Ureterolithiasis. Data reviewed: vital signs, nurses notes, lab test result(s), radiologic studies, CT scan, and as a result, I will discharge patient. Counseling: I had a detailed discussion with the patient and/or guardian regarding: the historical points, exam findings, and any diagnostic results supporting the discharge/admit diagnosis, lab results, radiology results, the need for outpatient follow up, to return to the emergency department if symptoms worsen or persist or if there are any questions or concerns that arise at home. Response to treatment: the patient's symptoms have mildly improved after treatment, and as a result, I will discharge patient. Special discussion: I discussed with the patient/guardian in detail that at this point there is no indication for admission to the hospital. It is understood, however, that if the symptoms persist or worsen the patient needs to return immediately for re-evaluation. Based on the history and exam findings, there is no indication for further emergent testing or inpatient evaluation. I discussed with the patient/guardian the need to see the [employer] for further evaluation of the symptoms. I discussed with the patient/guardian the need to see the primary care provider for further evaluation of the symptoms. ED course: No acute findings on CAT scan. Does show signs of liver cirrhosis and in addition to this a liver mass. Spoke with patient and states no previous CT imaging of the abdomen and is not aware if this is new or old. states daily drinker. Liver mass likely not causing back pain that is worse with movement and muscular in nature. Will DC home for outpatient work-up with PCP and GI follow-up. Patient states [facility] and plans on calling for appointment.. 07/23 09:03 Order name: CBC with Diff; Complete Time: 10: rn 07/23 09:03 Order name: Basic Metabolic Panel; Complete Time: 10:00 rn 07/23 09:03 Order name: CT Stone Protocol; Complete Time: 10:05 rn 07/23 10:21 Order name: CBC Smear Scan; Complete Time: : EDMS 07/23 09:03 Order name: IV Start; Complete Time: 09:20 rn Administered Medications: 09:20 Drug: NS 0.9% 1000 ml Route: IV; Rate: 1000 ml; Site: right antecubital; sm5 10:40 Drug: Flexeril (cyclobenzaprine) 10 mg Route: PO; sm5 Disposition Summary: 07/23/21 10:29 Discharge Ordered Location: Home rn Problem: new rn Symptoms: have improved rn Condition: Stable rn Diagnosis - Low back pain rn - Abnormal findings on diagnostic imaging of liver and biliary tract - Liver mass rn Followup: rn - With: Connor John MD - When: 5 - 6 days - Reason: Recheck today's complaints, Re-evaluation by your physician Discharge Instructions: - Discharge Summary Sheet rn - Acute Back Pain, Adult rn - Musculoskeletal Pain rn - Heat Therapy rn Forms: - Medication Reconciliation Form rn - Thank You Letter rn - 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
--- NOTE | 2021-07-23 10:30 | ER ---
Nurse's Notes [facility] Name: Rolf Hernandez Age: 76 yrs Sex: Male : 1945 Arrival Date: 07/23/2021 Time: 08:46 Bed 15 Private MD: Diagnosis: Low back pain;Abnormal findings on diagnostic imaging of liver and biliary tract-Liver mass Presentation: 07/23 08:55 Chief complaint: Patient states: Mid back pain for 3 days (worse than usual) with ll1 constipation. Coronavirus screen: Vaccine status: Patient reports receiving the 2nd dose of the covid vaccine. Client denies travel out of the [place] in the last 14 days. At this time, the client does not indicate any symptoms associated with coronavirus-19. Ebola Screen: Patient denies travel to an Ebola-affected area in the 21 days before illness onset. Initial Sepsis Screen: Does the patient meet any 2 criteria? HR > 90 bpm. No. Patient's initial sepsis screen is negative. Does the patient have a suspected source of infection? No. Patient's initial sepsis screen is negative. Risk Assessment: Do you want to hurt yourself or someone else? Patient reports no desire to harm self or others. Onset of symptoms was July 21, 2021. 08:55 Method Of Arrival: Wheelchair ll1 08:55 Acuity: KSAEY 3 ll1 Triage Assessment: 11:59 General: Appears uncomfortable, Behavior is cooperative. Pain: Complains of pain in sm5 back. Neuro: Level of Consciousness is awake, alert, obeys commands, Oriented to person, place, time, situation. Cardiovascular: No deficits noted. Respiratory: Airway is patent Trachea midline Respiratory effort is even, unlabored. Musculoskeletal: back pain. Historical: - Allergies: 08:54 amlodipine; ll1 08:54 Peanut; ll1 08:54 Sulfa (Sulfonamide Antibiotics); ll1 - PMHx: 08:54 Hyperlipidemia; Hypertension; ll1 - Immunization history:: Client reports receiving the 2nd dose of the Covid vaccine. - Social history:: Smoking status: Patient denies any tobacco usage or history of. - Family history:: not pertinent. - Hospitalizations: : No recent hospitalization is reported. Screenin:58 Abuse screen: Denies threats or abuse. Denies injuries from another. Nutritional sm5 screening: No deficits noted. Tuberculosis screening: No symptoms or risk factors identified. Fall Risk No fall in past 12 months (0 pts). IV access (20 points). Ambulatory Aid- None/Bed Rest/Nurse Assist (0 pts). Gait- Normal/Bed Rest/Wheelchair (0 pts) Mental Status- Oriented to own ability (0 pts). Total Velarde Fall Scale indicates No Risk (0-24 pts). Assessment: 12:00 Neuro: Level of Consciousness is awake, alert, obeys commands, Oriented to person, sm5 place, time, situation. Vital Signs: 08:55 BP 152 / 71; Pulse 98; Resp 20; Temp 97.6; Pulse Ox 100% ; Weight 99.79 kg; Height 6 ll1 ft. 2 in. (187.96 cm); 11:30 BP 138 / ???; Pulse 79; Resp 20; Pulse Ox 98% ; sm5 08:55 Body Mass Index 28.25 (99.79 kg, 187.96 cm) ll1 ED Course: 08:46 Patient arrived in ED. ds1 08:49 Jennifer Doan, CELSA is Primary Nurse. sm5 08:52 Adolfo Hercules MD is Attending Physician. rn 08:54 Arm band placed on Patient placed in an exam room, on a stretcher. ll1 08:56 Triage completed. ll1 09:12 Patient has correct armband on for positive identification. Bed in low position. Call [facility] light in reach. Side rails up X 1. Adult w/ patient. Pulse ox on. NIBP on. 09:21 Inserted saline lock: 20 gauge in right antecubital area, using aseptic technique. 5 Blood collected. 09:49 CT Stone Protocol In Process Unspecified. EDMS 10:29 Connor John MD is Referral Physician. rn 12:00 No provider procedures requiring assistance completed. sm5 12:01 IV discontinued, intact, bleeding controlled, No redness/swelling at site. sm5 Administered Medications: 09:20 Drug: NS 0.9% 1000 ml Route: IV; Rate: 1000 ml; Site: right antecubital; sm5 10:40 Drug: Flexeril (cyclobenzaprine) 10 mg Route: PO; sm5 Outcome: 10:29 Discharge ordered by . rn 11:50 Patient left the ED. mh5 12:00 Discharged to home via wheelchair, with family. 5 12:00 Condition: stable 12:00 Discharge instructions given to patient, significant other, Demonstrated understanding of instructions, follow-up care, medications, Prescriptions given X 1. Signatures: Dispatcher [employer] EDEmber Rodriguez ds1 Adolfo Hercules MD MD rn Martinez, Maria 5 Amor Atwood RN RN 1 Jennifer Doan RN RN 5
[2021-07-23] MEDS ORDERED: CYCLOBENZAPRINE 10 MG TAB ONE (10:37)
[2021-07-23 12:04] VITALS: BP 152/71; TEMP 97.6; O2SAT 100
== END 2021-07-23 11:50 | disposition home or self-care (01) ==
LOC: ER 08:44
DX: K76.89 Other specified diseases of liver (principal); I10 Essential (primary) hypertension; E78.5 Hyperlipidemia, unspecified; Z88.2 Allergy status to sulfonamides; Z88.8 Allergy status to other drugs, medicaments and biological substances; Z91.010 Allergy to peanuts
CPT/HCPCS: 85025; 80048; 36415; 76377; 74176; 99284; J7030

== ENCOUNTER 2021-07-25 08:41 | Emergency (ER) | payer OTHER ==
[2021-07-25] MEDS ORDERED: MAGNESIUM CITRATE 300 ML BOT ONE (11:09)
[2021-07-25] MEDS ORDERED: BISACODYL E.C. 5 MG TAB PO ONE (11:09)
--- NOTE | 2021-07-25 11:23 | RAD REPORT ---
EXAM DESCRIPTION: RAD - Abdomen Acute Series - 07/25/2021 9:52 am CLINICAL HISTORY: Abdominal pain FINDINGS: The bowel gas pattern is unremarkable with a large amount stool present throughout the col on. Free air is not seen beneath the diaphragm. Small right pleural effusion. Mild right lung opacities may represent pneumonia
--- NOTE | 2021-07-25 13:41 | ER ---
Nurse's Notes [facility] Name: Rolf Hernandez Age: 76 yrs Sex: Male : 1945 Arrival Date: 07/25/2021 Time: 08:43 Bed 5 Private MD: Diagnosis: Constipation;Slow transit constipation Presentation: 07/25 08:47 Chief complaint: Patient states: Constipation x 5 days. Coronavirus screen: Client ss denies travel out of the [place] in the last 14 days. Ebola Screen: Patient denies exposure to infectious person. Patient denies travel to an Ebola-affected area in the 21 days before illness onset. 08:47 Method Of Arrival: Wheelchair ss 08:51 Initial Sepsis Screen: Does the patient meet any 2 criteria? No. Patient's initial ss sepsis screen is negative. Does the patient have a suspected source of infection? No. Patient's initial sepsis screen is negative. Risk Assessment: Do you want to hurt yourself or someone else? Patient reports no desire to harm self or others. Note Pt and states that last time this happened he was given a drink that really helped. Had a CT two days ago which reportedly did not show any abnormality. Onset of symptoms was July 20, 2021. 08:51 Acuity: KASEY 4 ss Triage Assessment: 08:50 General: Appears in no apparent distress. uncomfortable, Behavior is cooperative, bp appropriate for age, anxious. Pain: Denies pain. EENT: No deficits noted. Neuro: No deficits noted. Cardiovascular: No deficits noted. Respiratory: No deficits noted. GI: Reports constipation. : No signs and/or symptoms were reported regarding the genitourinary system. Derm: No deficits noted. Musculoskeletal: Range of motion: intact in all extremities. Historical: - Allergies: 08:52 amlodipine; ss 08:52 Peanut; ss 08:52 Sulfa (Sulfonamide Antibiotics); ss - PMHx: 08:52 Hyperlipidemia; Hypertension; ss - Immunization history:: Client reports receiving the 2nd dose of the Covid vaccine. - Social history:: Smoking status: Patient denies any tobacco usage or history of. Screenin:50 Abuse screen: Denies threats or abuse. Denies injuries from another. Nutritional bp screening: No deficits noted. Tuberculosis screening: No symptoms or risk factors identified. Fall Risk None identified. Assessment: 08:50 Neuro: Level of Consciousness is awake, alert, obeys commands, Oriented to Appropriate bp for age. GI: Bowel sounds diminished in abdomen diffusely Abd is non tender. 11:00 Reassessment: PT PLACED ON B/S COMMODE, ADMINISTERED ANTI-CONSTIPATIVE AGENTS. bp 13:15 Reassessment: No changes from previously documented assessment. kd3 Vital Signs: 08:51 BP 151 / 79; Pulse 98; Resp 17; Temp 97.9(TE); Pulse Ox 100% on R/A; Weight 99.79 kg; ss Height 6 ft. 2 in. (187.96 cm); Pain 0/10; 09:00 BP 126 / 56; Pulse 97; Resp 16; Pulse Ox 100% ; bp 10:00 BP 143 / 64; Pulse 83; Resp 17; Pulse Ox 97% ; bp 11:00 BP 124 / 60; Pulse 83; Resp 16; Pulse Ox 98% ; bp 12:00 BP 135 / 62; Pulse 82; Resp 16; Pulse Ox 100% ; kd3 08:51 Body Mass Index 28.25 (99.79 kg, 187.96 cm) ED Course: 08:43 Patient arrived in ED. as 08:45 Simba Mack MD is Attending Physician. kdr 08:50 Patient has correct armband on for positive identification. Bed in low position. Call bp light in reach. Side rails up X2. Adult w/ patient. 08:52 Triage completed. ss 08:53 Arm band placed on right wrist. Patient placed in an exam room, on a stretcher, on pulse oximetry. 09:01 Corby Sol, RN is Primary Nurse. bp 09:52 Abdomen Acute Series XRAY In Process Unspecified. EDMS Administered Medications: 11:00 Drug: Magnesium Citrate Liquid 300 ml Route: PO; bp 11:00 Drug: Dulcolax (bisacodyl) Delayed Release Tablet 5 mg Route: PO; bp Outcome: 13:40 Discharge ordered by . kdr 14:26 Patient left the ED. em1 Signatures: Dispatcher [employer] EDMS Simba Mack MD MD kdr Heike Das Eric em1 Sharon Potts RN RN Ebenezer, Corby, RN RN bp Praveena, Diane, RN RN kd3
--- NOTE | 2021-07-25 13:41 | EDPHYS ---
Physician Documentation [facility] Name: Rolf Hernandez Age: 76 yrs Sex: Male : 1945 Arrival Date: 07/25/2021 Time: 08:43 Bed 5 Private MD: ED Physician Simba Mack HPI: 07/25 09:18 This 76 yrs old Male presents to ER via Wheelchair with complaints of Constipation. kdr 09:18 Patient continues to have back pain especially with movement after prolonged sedentary kdr stent. In addition to that he has had no bowel movement the last 5 days and is concerned that he is constipated. Normally he has a bowel movement daily. He does not seem to have any significant symptoms related to the none evacuation of his bowels. He does though continue to clear the back pain which was present when he was seen here previously on the prior visit. Onset: The symptoms/episode began/occurred gradually, at an unknown time. Severity of symptoms: At their worst the symptoms were mild moderate in the emergency department the symptoms are unchanged. The patient has not experienced similar symptoms in the past. Historical: - Allergies: 08:52 amlodipine; ss 08:52 Peanut; ss 08:52 Sulfa (Sulfonamide Antibiotics); ss - PMHx: 08:52 Hyperlipidemia; Hypertension; ss - Immunization history:: Client reports receiving the 2nd dose of the Covid vaccine. - Social history:: Smoking status: Patient denies any tobacco usage or history of. ROS: 09:18 Constitutional: Negative for fever, chills, and weight loss, Eyes: Negative for injury, kdr pain, redness, and discharge, ENT: Negative for injury, pain, and discharge, Neck: Negative for injury, pain, and swelling, Cardiovascular: Negative for chest pain, palpitations, and edema, Respiratory: Negative for shortness of breath, cough, wheezing, and pleuritic chest pain, : Negative for injury, bleeding, discharge, and swelling, MS/Extremity: Negative for injury and deformity, Skin: Negative for injury, rash, and discoloration, Neuro: Negative for headache, weakness, numbness, tingling, and seizure activity. Psych: Negative for depression, anxiety, suicide ideation, homicidal ideation, and hallucinations, Allergy/Immunology: Negative for hives, rash, and allergies, Endocrine: Negative for neck swelling, polydipsia, polyuria, polyphagia, and marked weight changes, Hematologic/Lymphatic: Negative for swollen nodes, abnormal bleeding, and unusual bruising. 09:18 Abdomen/GI: Positive for abdominal pain, constipation, Negative for nausea, vomiting, and diarrhea, black/tarry stool, rectal pain, rectal bleeding. 09:18 Back: Positive for pain with movement. Exam: 09:18 Constitutional: This is a well developed, well nourished patient who is awake, alert, kdr and in no acute distress. Head/Face: Normocephalic, atraumatic. Eyes: Pupils equal round and reactive to light, extra-ocular motions intact. Lids and lashes normal. Conjunctiva and sclera are non-icteric and not injected. Cornea within normal limits. Periorbital areas with no swelling, redness, or edema. Neck: Trachea midline, no thyromegaly or masses palpated, and no cervical lymphadenopathy. Supple, full range of motion without nuchal rigidity, or vertebral point tenderness. No Meningismus. Chest/axilla: Normal chest wall appearance and motion. Nontender with no deformity. No lesions are appreciated. Cardiovascular: Regular rate and rhythm with a normal S1 and S2. No gallops, murmurs, or rubs. Normal PMI, no JVD. No pulse deficits. Respiratory: Lungs have equal breath sounds bilaterally, clear to auscultation and percussion. No rales, rhonchi or wheezes noted. No increased work of breathing, no retractions or nasal flaring. Skin: Warm, dry with normal turgor. Normal color with no rashes, no lesions, and no evidence of cellulitis. MS/ Extremity: Pulses equal, no cyanosis. Neurovascular intact. Full, normal range of motion. Neuro: Awake and alert, GCS 15, oriented to person, place, time, and situation. Cranial nerves II-XII grossly intact. Motor strength 5/5 in all extremities. Sensory grossly intact. Cerebellar exam normal. Normal gait. Psych: Awake, alert, with orientation to person, place and time. Behavior, mood, and affect are within normal limits. 09:18 Abdomen/GI: Inspection: distension, that is mild, Bowel sounds: active, all quadrants, Palpation: soft, nontender, in all quadrants. Vital Signs: 08:51 BP 151 / 79; Pulse 98; Resp 17; Temp 97.9(TE); Pulse Ox 100% on R/A; Weight 99.79 kg; ss Height 6 ft. 2 in. (187.96 cm); Pain 0/10; 09:00 BP 126 / 56; Pulse 97; Resp 16; Pulse Ox 100% ; bp 10:00 BP 143 / 64; Pulse 83; Resp 17; Pulse Ox 97% ; bp 11:00 BP 124 / 60; Pulse 83; Resp 16; Pulse Ox 98% ; bp 12:00 BP 135 / 62; Pulse 82; Resp 16; Pulse Ox 100% ; kd3 08:51 Body Mass Index 28.25 (99.79 kg, 187.96 cm) ss MDM: 09:18 Data reviewed: vital signs, nurses notes, lab test result(s). Counseling: I had a kdr detailed discussion with the patient and/or guardian regarding: the historical points, exam findings, and any diagnostic results supporting the discharge/admit diagnosis, lab results, radiology results, the need for outpatient follow up. 13:40 Patient medically screened. kdr 07/25 09:17 Order name: Abdomen Acute Series XRAY; Complete Time: 11:49 kdr 07/25 09:17 Order name: Misc. Order: Administer oral anticonstipation concoction: Butter, apple kdr juice, pineapple juice, etc. ; Complete Time: :26 Administered Medications: 11:00 Drug: Magnesium Citrate Liquid 300 ml Route: PO; bp 11:00 Drug: Dulcolax (bisacodyl) Delayed Release Tablet 5 mg Route: PO; bp Disposition Summary: 07/25/21 13:40 Discharge Ordered Location: Home kdr Problem: an ongoing problem kdr Symptoms: are unchanged kdr Condition: Stable kdr Diagnosis - Constipation kdr - Slow transit constipation kdr Followup: kdr - With: Private Physician - When: 2 - 3 days - Reason: If symptoms return, Further diagnostic work-up, Recheck today's complaints, Continuance of care, Re-evaluation by your physician Discharge Instructions: - Discharge Summary Sheet kdr - Constipation, Adult, [id number] kdr Forms: - Medication Reconciliation Form kdr - Thank You Letter kdr Prescriptions: - Dulcolax Stool Softener (dss) 100 mg Oral capsule - take 1 capsule by ORAL route once daily; 30 capsule; Refills: 0, Product kdr Selection Permitted - Miralax 17 gram Oral powder in packet - take 1 packet by ORAL route once daily; 1 box; Refills: 0, Product Selection kdr Permitted - magnesium citrate - take 1 bottle by ORAL route every 8-12 hours As needed; 4 bottle; Refills: 0, kdr Product Selection Permitted Signatures: Dispatcher [employer] Simba Nielsen MD MD kdr Sharon Potts RN RN ss Corby Sol RN RN bp
[2021-07-25 14:31] VITALS: TEMP 97.9
[2021-07-25 14:37] VITALS: BP 135/62; O2SAT 100
== END 2021-07-25 14:26 | disposition home or self-care (01) ==
LOC: ER 08:41
DX: K59.01 Slow transit constipation (principal); I10 Essential (primary) hypertension; E78.5 Hyperlipidemia, unspecified; Z88.2 Allergy status to sulfonamides; Z88.8 Allergy status to other drugs, medicaments and biological substances; Z91.010 Allergy to peanuts
CPT/HCPCS: 74022; 99284

== ENCOUNTER 2021-08-09 20:24 | Inpatient (IN) | payer OTHER ==
[2021-08-09 21:18] LABS: Absolute Lymphocytes (CBC) 1.2 K/uL (0.7-4.9); Basophils % 0.5 % (0-1.3); Hematocrit 42.7 % (39.6-49.0); Lymphocytes % 5.8 % (15.3-44.8); MPV 6.4 fL (7.6-11.3); RBC Red Blood Cell Count 5.03 M/uL (4.33-5.43)
[2021-08-09 21:21] LABS: Protime INR 1.12
[2021-08-09] MEDS ORDERED: NA CHLORIDE 0.9% 1,000 ML ONE (21:34)
[2021-08-09] MEDS ORDERED: NA CHLORIDE 0.9% 100 ML ONE (21:34)
[2021-08-09] MEDS ORDERED: PIPERACIL/TAZO 3.375 GM VIAL IV ONE (21:35)
[2021-08-09 21:40] LABS: ALT/SGPT 37 U/L (12-78); AST/SGOT 71 U/L (15-37); Albumin 1.8 g/dL (3.4-5.0); Alkaline Phosphatase 453 U/L (45-117); BUN Blood Urea Nitrogen 42 mg/dL (7-18); Bicarbonate 20 mmol/L (21-32); Bilirubin Direct 0.3 mg/dL (0-0.2); Bilirubin Total 0.7 mg/dL (0.2-1.0); Glucose Level 111 mg/dL (74-106); Lipase 56 U/L (73-393); Magnesium 2.6 mg/dL (1.8-2.4); NT PRO-BNP 624 pg/mL (<450); Protein, Total 6.9 g/dL (6.4-8.2); Sodium Level 131 mmol/L (136-145); Troponin (Emerg Dept Use Only) < 0.02 ng/mL (0.0-0.045)
[2021-08-09 21:47] LABS: Potassium 5.6 mmol/L (3.5-5.1)
[2021-08-09 21:52] LABS: Blood Morphology Comment NOT SEEN (NOT SEEN); Platelet Estimate INCR; Platelets, Giant OCC
--- NOTE | 2021-08-09 21:59 | ER ---
Nurse's Notes [facility] Name: Rolf Hernandez Age: 76 yrs Sex: Male : 1945 Arrival Date: 08/09/2021 Time: 20:24 Bed 13 Private MD: Diagnosis: Weakness;Acute kidney failure, unspecified;Hyperkalemia;Elevated white blood cell count;Diabetes mellitus due to underlying condition with foot ulcer;Acute embolism and thrombosis of other specified deep vein of right lower extremity;Pleural effusion, not elsewhere classified Presentation: 08/09 20:36 Chief complaint: EMS states: they were toned out for report of pt with chronic pain to bb his back, legs and abdominal pain. Coronavirus screen: At this time, the client does not indicate any symptoms associated with coronavirus-19. Ebola Screen: No symptoms or risks identified at this time. Initial Sepsis Screen: Does the patient meet any 2 criteria? No. Patient's initial sepsis screen is negative. Does the patient have a suspected source of infection? No. Patient's initial sepsis screen is negative. Risk Assessment: Do you want to hurt yourself or someone else? Patient reports no desire to harm self or others. Onset of symptoms is unknown. 20:36 Method Of Arrival: EMS: [facility] bb 20:36 Acuity: KASEY 3 bb Triage Assessment: 22:25 General: Behavior is cooperative. sv1 22:26 Pain: Denies pain. sv1 08/10 01:25 General: Appears comfortable. General: well. sv1 Historical: - Allergies: 08/09 20:38 amlodipine; bb 20:38 Peanut; bb 20:38 Sulfa (Sulfonamide Antibiotics); bb - Immunization history:: Adult Immunizations up to date, Client reports receiving the 2nd dose of the Covid vaccine, [employer]. - Social history:: Smoking status: Patient denies any tobacco usage or history of. Patient uses alcohol, occasionally. Screenin:24 Nutritional screening: No deficits noted. Tuberculosis screening: No symptoms or risk sv1 factors identified. Fall Risk Secondary diagnosis (15 points) impaired mobility, IV access (20 points). Gait- Weak (10 pts.). 22:26 Abuse screen: None. sv1 Assessment: 22:22 Reassessment: IV zosyn given. Oral meds given. Ct is on the way to take the patient. sv1 22:36 Reassessment: To CT via javierrcristofer. sv1 08/10 01:38 Reassessment: All labs completed. Vital signs are stable. To be admitted to room 222. sv1 Report called to Gage STEEN. Vital Signs: 08/09 20:36 BP 140 / 73; Pulse 105; Resp 24 S; Temp 98.1(O); Pulse Ox 100% on R/A; Weight 99.79 kg bb (R); Height 6 ft. 2 in. (187.96 cm) (R); Pain 6/10; 22:35 BP 122 / 88; Pulse 110; Resp 21; Pulse Ox 99% 0 lpm ; Pain 0/10; sv1 08/10 00:44 BP 163 / 62; Pulse 97; Resp 23; Pulse Ox 96% 0 lpm ; Pain 0/10; sv1 08/09 20:36 Body Mass Index 28.25 (99.79 kg, 187.96 cm) bb ED Course: 08/09 20:24 Patient arrived in ED. as 20:35 Tyler Gray MD is Attending Physician. arturo 20:38 Triage completed. bb 20:38 Arm band placed on Patient placed in an exam room, on a stretcher, on pulse oximetry. bb Family accompanied patient. 20:55 Skip Stover, RN is Primary Nurse. mr2 21:10 Initial lab(s) drawn, by or, sent to lab. lt3 21:12 Inserted saline lock: 20 gauge in right antecubital area, using aseptic technique. lt3 21:31 EKG done, by ED staff, reviewed by Tyler Gray MD COVID swab sent to lab. lt3 21:39 XRAY Chest (1 view) In Process Unspecified. EDMS 21:40 Foot Right 3 View XRAY In Process Unspecified. EDMS 21:50 First set of blood cultures drawn by me. lt3 21:55 Cristiano Andujar DO is Hospitalizing Provider. arturo 21:58 Inserted saline lock: 22 gauge in left antecubital area, using aseptic technique. lt3 22:15 Second set of blood cultures drawn By me, RAC draw by butterfly needle. lt3 22:16 Blood Culture Adult (2) Sent. lt3 22:24 Side rails up X2. Adult w/ patient. sv1 22:35 Notified ED physician of a critical lab result(s). lactate of 2.7 Dr Gray notified. bb 22:57 CT Chest Abdomen Pelvis W/O Contrast In Process Unspecified. EDMS 08/10 00:10 US Extremity Venous W Compression Isaias In Process Unspecified. EDMS 01:25 No provider procedures requiring assistance completed. sv1 01:26 Flushed right left antecubital sv1 Administered Medications: 08/09 10:15 Drug: Kayexalate (polystyrene) 45 grams Route: PO; sv1 10:15 Drug: Viscous Lidocaine Liquid (4 %) 5 ml Route: Mucous Membrane; sv1 22:00 Drug: Albuterol 5 mg Route: Inhalation; sv1 22:15 Drug: Zosyn (piperacillin-tazobactam) 3.375 grams Route: IVPB; Infused Over: 60 mins; sv1 Site: left antecubital; 23:56 Drug: NS 0.9% 1000 ml Route: IV; Rate: 1 bolus; Site: right antecubital; sv1 08/10 00:11 Drug: NS 0.9% 1000 ml Route: IV; Rate: 1 bolus; Site: right antecubital; sv1 00:22 CANCELLED (Duplicate Order): Pepcid (famotidine) 20 mg IVP once; dilute with 10 mL 0.9% arturo NaCl; give over 2 minutes 00:24 Drug: Pepcid (famotidine) 20 mg Route: PO; sv1 00:36 Drug: Lovenox (enoxaparin) 100 mg Route: Sub-Q; Site: abdomen; sv1 Outcome: 08/09 21:58 Decision to Hospitalize by Provider. [facility] 08/10 01:26 Condition: stable sv1 01:26 Admitted to Med/surg accompanied by tech. sv1 02:16 Patient left the ED. lp1 Signatures: Dispatcher [employer] EDWI Tyler Gray MD MD cha Martinez, Amelia as Ballard, Brenda, RN RN Tali Tello, CELSA RN lp1 Skip Stover RN RN mr2 SilvestreMely 3 Jean Carlos Mccormick RN RN sv1 Corrections: (The following items were deleted from the chart) 08/09 20:39 20:38 PMHx: Hypertension; bb bb 20:39 20:38 PMHx: Hyperlipidemia; bb bb
--- NOTE | 2021-08-09 21:59 | EDPHYS ---
Physician Documentation [facility] Name: Rolf Hernandez Age: 76 yrs Sex: Male : 1945 Arrival Date: 08/09/2021 Time: 20:24 Bed 13 Private MD: ED Physician Tyler Gray HPI: 08/09 20:59 This 76 yrs old Male presents to ER via EMS with complaints of back pain , arturo abdominal pain. 20:59 The patient presents with pain and decreased range of motion, and tenderness. The arturo symptoms are located in the lumbar area. Onset: The symptoms/episode began/occurred 2 day(s) ago. The pain does not radiate. Associated signs and symptoms: Pertinent positives: weakness. The problem was sustained from unknown cause. Modifying factors: The patient symptoms are alleviated by rest, the patient symptoms are aggravated by walking. wek, exhausted , no blood loss, no melena. Severity of symptoms: At their worst the symptoms were moderate, in the emergency department the symptoms are unchanged. The patient has experienced similar episodes in the past, multiple times. Historical: - Allergies: 20:38 amlodipine; bb 20:38 Peanut; bb 20:38 Sulfa (Sulfonamide Antibiotics); bb - Immunization history:: Adult Immunizations up to date, Client reports receiving the 2nd dose of the Covid vaccine, [employer]. - Social history:: Smoking status: Patient denies any tobacco usage or history of. Patient uses alcohol, occasionally. ROS: 21:02 Constitutional: Negative for fever, chills, and weight loss, Eyes: Negative for injury, arturo pain, redness, and discharge, ENT: Negative for injury, pain, and discharge, Neck: Negative for injury, pain, and swelling, Cardiovascular: Negative for chest pain, palpitations, and edema, Respiratory: Negative for shortness of breath, cough, wheezing, and pleuritic chest pain, Abdomen/GI: Negative for abdominal pain, nausea, vomiting, diarrhea, and constipation, Back: Negative for injury and pain, : Negative for injury, bleeding, discharge, and swelling, MS/Extremity: Negative for injury and deformity, Skin: Negative for injury, rash, and discoloration, Psych: Negative for depression, anxiety, suicide ideation, homicidal ideation, and hallucinations, Allergy/Immunology: Negative for hives, rash, and allergies, Endocrine: Negative for neck swelling, polydipsia, polyuria, polyphagia, and marked weight changes, Hematologic/Lymphatic: Negative for swollen nodes, abnormal bleeding, and unusual bruising. 21:02 MS/extremity: Positive for pain, of the arch of right foot, 1.5 cm x 1.5 cm planter wound. 21:02 Neuro: Positive for weakness. Exam: 21:04 Constitutional: This is a well developed, well nourished patient who is awake, alert, arturo and in no acute distress. Head/Face: Normocephalic, atraumatic. Eyes: Pupils equal round and reactive to light, extra-ocular motions intact. Lids and lashes normal. Conjunctiva and sclera are non-icteric and not injected. Cornea within normal limits. Periorbital areas with no swelling, redness, or edema. ENT: Nares patent. No nasal discharge, no septal abnormalities noted. Tympanic membranes are normal and external auditory canals are clear. Oropharynx with no redness, swelling, or masses, exudates, or evidence of obstruction, uvula midline. Mucous membranes moist. Neck: Trachea midline, no thyromegaly or masses palpated, and no cervical lymphadenopathy. Supple, full range of motion without nuchal rigidity, or vertebral point tenderness. No Meningismus. Chest/axilla: Normal chest wall appearance and motion. Nontender with no deformity. No lesions are appreciated. Cardiovascular: Regular rate and rhythm with a normal S1 and S2. No gallops, murmurs, or rubs. Normal PMI, no JVD. No pulse deficits. Respiratory: Lungs have equal breath sounds bilaterally, clear to auscultation and percussion. No rales, rhonchi or wheezes noted. No increased work of breathing, no retractions or nasal flaring. Abdomen/GI: Soft, non-tender, with normal bowel sounds. No distension or tympany. No guarding or rebound. No evidence of tenderness throughout. Back: No spinal tenderness. No costovertebral tenderness. Full range of motion. Male : Normal genitalia with no discharge or lesions. MS/ Extremity: Pulses equal, no cyanosis. Neurovascular intact. Full, normal range of motion. Neuro: Awake and alert, GCS 15, oriented to person, place, time, and situation. Cranial nerves II-XII grossly intact. Motor strength 5/5 in all extremities. Sensory grossly intact. Cerebellar exam normal. Normal gait. Psych: Awake, alert, with orientation to person, place and time. Behavior, mood, and affect are within normal limits. 21:04 Skin: Appearance: Color: pale. 21:58 ECG was reviewed by the Attending Physician. [facility] Vital Signs: 20:36 BP 140 / 73; Pulse 105; Resp 24 S; Temp 98.1(O); Pulse Ox 100% on R/A; Weight 99.79 kg bb (R); Height 6 ft. 2 in. (187.96 cm) (R); Pain 6/10; 22:35 BP 122 / 88; Pulse 110; Resp 21; Pulse Ox 99% 0 lpm ; Pain 0/10; sv1 08/10 00:44 BP 163 / 62; Pulse 97; Resp 23; Pulse Ox 96% 0 lpm ; Pain 0/10; sv1 08/09 20:36 Body Mass Index 28.25 (99.79 kg, 187.96 cm) bb MDM: 08/09 20:35 Patient medically screened. [facility] 21:04 Differential diagnosis: Basilar Pneumonia Fatigue Obesity Osteoarthritis Pyelonephritis arturo ruptured disc, sprain, Ureterolithiasis vertebral fracture. Data reviewed: vital signs, nurses notes, EMS record, lab test result(s), EKG, radiologic studies, CT scan, plain films. Data interpreted: monitoring manager: rate is 105 beats/min, rhythm is regular, Pulse oximetry: on room air is 100 %. Test interpretation: by ED physician or midlevel provider: ECG, plain radiologic studies. Counseling: I had a detailed discussion with the patient and/or guardian regarding: the historical points, exam findings, and any diagnostic results supporting the discharge/admit diagnosis, lab results, radiology results, the need for further work-up and treatment in the hospital. 08/09 20:58 Order name: Basic Metabolic Panel; Complete Time: 21:49 arturo 08/09 20:58 Order name: CBC with Diff; Complete Time: 21:53 [facility] 08/09 20:58 Order name: LFT's; Complete Time: 21:49 [facility] 08/09 20:58 Order name: Magnesium; Complete Time: 21:49 [facility] 08/09 20:58 Order name: NT PRO-BNP; Complete Time: 21:49 [facility] 08/09 20:58 Order name: PT-INR; Complete Time: 21:45 [facility] 08/09 20:58 Order name: Troponin (emerg Dept Use Only); Complete Time: 21:49 [facility] 08/09 20:58 Order name: SARS-COV-2 RT PCR (Document "Date of Onset" if Symptomatic); Complete Time: [facility] 22:50 08/09 20:58 Order name: Lipase; Complete Time: 21:49 [facility] 08/09 20:58 Order name: Wound Culture [facility] 08/09 21:02 Order name: TSH [facility] 08/09 21:02 Order name: Thyroid Stimulating Hormone; Complete Time: 22:50 [facility] 08/09 21:25 Order name: Blood Culture Adult (2) [facility] 08/09 21:25 Order name: Lactate; Complete Time: 22:50 [facility] 08/09 20:58 Order name: XRAY Chest (1 view); Complete Time: 22:10 [facility] 08/09 21:07 Order name: US Extremity Venous W Compression Isaias [facility] 08/09 21:25 Order name: Procalcitonin; Complete Time: 22:10 [facility] 08/09 21:25 Order name: Foot Right 3 View XRAY; Complete Time: 22:10 [facility] 08/09 21:26 Order name: Blood Culture [facility] 08/09 21:27 Order name: Manual Differential; Complete Time: 21:53 [facility] 08/09 21:50 Order name: CT Chest Abdomen Pelvis W/O Contrast [facility] 08/09 22:34 Order name: T4 Free; Complete Time: 22:50 [facility] 08/09 23:22 Order name: Urine Dipstick-Ancillary; Complete Time: 23:53 [facility] 08/10 01:17 Order name: Lactate Sepsis 2 HR Follow-up [facility] 08/09 20:58 Order name: EKG; Complete Time: 20:59 [facility] 08/09 20:58 Order name: Cardiac monitoring; Complete Time: 21:30 [facility] 08/09 20:58 Order name: EKG - Nurse/Tech; Complete Time: 21:30 [facility] 08/09 20:58 Order name: IV Saline Lock; Complete Time: 21:12 [facility] 08/09 20:58 Order name: Labs collected and sent; Complete Time: 21:12 [facility] 08/09 20:58 Order name: O2 Per Protocol; Complete Time: 21:30 [facility] 08/09 20:58 Order name: O2 Sat Monitoring; Complete Time: 21:30 [facility] 08/09 20:58 Order name: Wound dressing; Complete Time: 23:42 arturo 08/09 20:58 Order name: Urine Dipstick-Ancillary (obtain specimen); Complete Time: 23:42 [facility] EC:58 Rate is 106 beats/min. Rhythm is regular. QRS [place] is Normal. MT interval is normal. arturo QRS interval is normal. QT interval is normal. No Q waves. T waves are Normal. ST Segment is depressed in leads I, aVL, V1, V2. Clinical impression: NSR w/ Non-specific ST/T Changes and Sinus tachycardia. Interpreted by me. Reviewed by me. Administered Medications: 10:15 Drug: Kayexalate (polystyrene) 45 grams Route: PO; sv1 10:15 Drug: Viscous Lidocaine Liquid (4 %) 5 ml Route: Mucous Membrane; sv1 22:00 Drug: Albuterol 5 mg Route: Inhalation; sv1 22:15 Drug: Zosyn (piperacillin-tazobactam) 3.375 grams Route: IVPB; Infused Over: 60 mins; sv1 Site: left antecubital; 23:56 Drug: NS 0.9% 1000 ml Route: IV; Rate: 1 bolus; Site: right antecubital; sv1 12 00:11 Drug: NS 0.9% 1000 ml Route: IV; Rate: 1 bolus; Site: right antecubital; sv1 00:22 CANCELLED (Duplicate Order): Pepcid (famotidine) 20 mg IVP once; dilute with 10 mL 0.9% [facility] NaCl; give over 2 minutes 00:24 Drug: Pepcid (famotidine) 20 mg Route: PO; sv1 00:36 Drug: Lovenox (enoxaparin) 100 mg Route: Sub-Q; Site: abdomen; sv1 Disposition Summary: 08/09/21 21:58 Hospitalization Ordered Hospitalization Status: Inpatient Admission arturo Provider: Cristiano Andujar cha Location: Telemetry/MedSurg (Inpatient) arturo Condition: Fair arturo Problem: new arturo Symptoms: have improved arturo Bed/Room Type: Standard arturo Room Assignment: 222(08/10/21 00:39) cg Diagnosis - Weakness arturo - Acute kidney failure, unspecified arturo - Hyperkalemia arturo - Elevated white blood cell count arturo - Diabetes mellitus due to underlying condition with foot ulcer arturo - Acute embolism and thrombosis of other specified deep vein of right lower extremity arturo - Pleural effusion, not elsewhere classified arturo Forms: - Medication Reconciliation Form arturo - SBAR form arturo Signatures: Dispatcher [employer] EDTyler Cai MD MD cha Ballard, Brenda, RN RN bb John Zamora, ERP PM-C ERP PM-Cla1 Pricilla Vázquez, RN RN cg Jean Carlos Mccormick RN RN sv1 Corrections: (The following items were deleted from the chart) 08/09 20:39 20:38 PMHx: Hypertension; bb bb 20:39 20:38 PMHx: Hyperlipidemia; bb bb 22:08 20:59 Chest Abdomen Pelvis W Con+CT.RAD.BRZ ordered. [facility] 08/10 00:22 08/09 21:07 Pepcid (famotidine) 20 mg IVP once; dilute with 10 mL 0.9% NaCl; give over arturo 2 minutes ordered. [facility] 08/10 00:39 08/09 21:58 arturo
[2021-08-09] MEDS ORDERED: SOD POLYSTYREN SUL 15 GM/60 ML UCUP ONE (22:02)
[2021-08-09] MEDS ORDERED: LIDOCAINE VISCOUS 2% SOLN 15 ML UDC ONE (22:02)
--- NOTE | 2021-08-09 22:04 | RAD REPORT ---
EXAM DESCRIPTION: RAD - Chest Single View - 08/09/2021 9:40 pm CLINICAL HISTORY: COUGH COMPARISON: <Comparisons> FINDINGS: Lines: None. Lungs: Mild ill-defined opacities in the right mid lung and left lung base. Pleural: No significant pleural effusions or pneumothorax. Cardiac: Enlarged cardiopericardial silhouette Bones: No acute fractures. Other: IMPRESSION: Mild ill-defined bilateral opacities. This could reflect mild pneumonia. A chest CT is p ending at time of dictation.
--- NOTE | 2021-08-09 22:06 | RAD REPORT ---
EXAM DESCRIPTION: RAD - Foot Right 3 View - 08/09/2021 9:40 pm CLINICAL HISTORY: PAIN COMPARISON: Abdomen Acute Series dated 07/25/2021; CHEST SINGLE VIEW dated 07/25/2012; CHEST SINGLE VIEW dated 07/02/2012Foot Right 2 View dated 07/21/2012 FINDINGS: The second toe is dislocated at the level of the MTP joint. 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 Advanced midfoot and hindfoot degenerative changes. Peripheral vascular calcifications. No acu te fracture . IMPRESSION: 1. No acute fracture of the right foot. 2. Dislocated second toe at the MTP joint.
[2021-08-09 22:33] LABS: Thyroid Stimulating Hormone 4.78 uIU/mL (0.360-3.740)
[2021-08-09 23:23] LABS: Urine Blood Negative (Negative); Urine Glucose Negative (Negative); Urine Protein Negative (Negative); Urine Specific Gravity 1.025 (1.005-1.030)
[2021-08-09] MEDS ORDERED: NA CHLORIDE 0.9% 2,000 ML ONE (23:46)
[2021-08-09] MEDS ORDERED: FAMOTIDINE 20 MG TAB ONE (23:46)
[2021-08-10] MEDS ORDERED: ENOXAPARIN 100 MG/ML SYR SQ ONE (00:26)
--- NOTE | 2021-08-10 00:58 | P.HP ---
Certification for Inpatient Patient admitted to: Inpatient With expected LOS: >2 Midnights Patient will require the following post-hospital care: None Practitioner: I am a practitioner with admitting privileges, knowledge of patient current condition, hospital course, and medical plan of care. Services: Services provided to patient in accordance with Admission requirements found in Title 42 Section 412.3 of the Code of Federal Regulations Patient History Date of Service: 08/10/21 [facility] Care Provider: [facility] Reason for admission: Pneumonia History of Present Illness: 76-year-old male with history of hypertension presents the emergency department for generalized pain and weakness, cough for the last few days with increased sputum production. Patient was evaluated in the emergency department labs were significant for white blood cell count 21.1 platelet count 548 potassium 5.6 sodium 131 bicarb 20 BUN 42 creatinine 1.53 GFR 44 lactic acid 2.8 calcium 10.7 magnesium 2.6 alk phos 353 BNP 624 procalcitonin 1.57 TSH 4.78 urinalysis negative Covid test negative chest x-ray demonstrates mild ill- defined bilateral opacities which could reflect pneumonia CT chest abdomen pelvis without contrast demonstrates small patchy areas of alveolar airspace densities with minimal tree-in-bud distribution involving the bilateral upper lobes which may correspond to infectious or inflammatory process, small bilateral pleural effusions, lytic lesions noted in multiple locations, large hypodense lesion right hepatic lobe measuring 8.2 cm, minimal haziness within the anterior left peritoneum/left greater omentum which could correspond to ascites or the possibility of peritoneal carcinomatosis. Patient also had ultrasound of bilateral lower extremities which was positive for acute DVT in the femoral and posterior tibial right lower extremity veins. ED provider wishes to admit for further evaluation and management. Patient normotensive not tachycardic or febrile does not appear to be septic at this time. Allergies amlodipine Allergy (Unverified 01/28/18 13:11) Unknown am Allergy (Uncoded 01/13/18 16:18) Unknown Peanut Allergy (Uncoded 01/13/18 16:18) Unknown Sulfa (Sulfonamide Allergy (Uncoded 01/13/18 16:18) Unknown Sulfa (Sulfonamide Anti Allergy (Uncoded 01/28/18 13:11) Unknown Home Medications: Atenolol 25 tab PO DAILY 07/02/12 Hydrocodone/Acetaminophen [Huguenot 5-325 Tablet] 1 each PO Q6HP PRN #30 tablet 08/15/12 Hydrocort Acetate Suppos [Anucort-Hc Suppository] 25 mg RC Q12H PRN #0 supp 08/15/12 Smz./Tmp. [Bactrim Ds 800 MG/160 MG*] 1 each PO Q12H #10 tab 08/15/12 - Past Medical/Surgical History -: Hypertension -: Multiple surgeries on bilateral feet Psychosocial/ Personal History: patient is retired and lives at home with his - Family History Family History: Reviewed- Non-Contributory - Social History Smoking Status: Never smoker Alcohol use: Yes CD- Drugs: No Caffeine use: Yes Place of Residence: Home Review of Systems 10-point ROS is otherwise unremarkable General: Weakness, Malaise Respiratory: Cough, Shortness of Breath Cardiovascular: Edema Gastrointestinal: Distention Physical Examination - Physical Exam General: Alert, In no apparent distress, Oriented x3, Obese HEENT: Atraumatic, PERRLA, Mucous membr. moist/pink, EOMI, Sclerae nonicteric Neck: Supple, 2+ carotid pulse no bruit, No LAD, Without JVD or thyroid abnormality Respiratory: Normal air movement, Diminished Cardiovascular: Regular rate/rhythm, Normal S1 S2 Capillary refill: <2 Seconds Gastrointestinal: Normal bowel sounds, No tenderness, No masses, No rebound, Distended, Ascites Musculoskeletal: No contractures, No erythema, No tenderness Integumentary: Venous stasis ulcer (Right foot lateral aspect) Neurological: Normal speech, Normal strength at 5/5 x4 extr, Normal tone, Normal affect Lymphatics: No axilla or inguinal lymphadenopathy - Studies Laboratory Data (last 24 hrs) 08/09/21 21:10: PT 12.9 H, INR 1.12 08/09/21 21:10: WBC 21.10 H*, Hgb 14.2, Hct 42.7, Plt Count 548 H 08/09/21 21:10: Sodium 131 L, Potassium 5.6 H*, BUN 42 H, Creatinine 1.53 H, Glucose 111 H, Magnesium 2.6 H, Total Bilirubin 0.7, AST 71 H, ALT 37, Alkaline Phosphatase 453 H, Lipase 56 L Assessment and Plan - Plan Assessment: Leukocytosis likely secondary to bilateral upper lobe pneumonia with tree-in-bud distribution Acute kidney injury with hyperkalemia Acute DVT of the right lower extremity femoral and posterior tibial veins Venous ulceration lateral right foot 8.2 cm hypodense lesion right hepatic lobe Additional abnormal CT findings-multiple small bilateral pulmonary nodules largest measuring 8.4 mm, small bilateral pleural effusions, lytic lesions second right rib, lateral seventh left rib, vertebral body T12, minimal haziness within the anterior left peritoneum/left greater omentum ascites versus peritoneal carcinomatosis Plan: Leukocytosis likely secondary to bilateral upper lobe pneumonia with tree-in-bud distribution: Continue with IV Levaquin also covering for possible infectious process of the lateral right foot venous ulceration. Will obtain sputum cultures, pulmonology consulted as well. Blood cultures obtained. Incentive spirometry, will have patient work with physical therapy as well as he has been feeling very weak. Given the additional findings concerning for metastatic disease. Acute kidney injury with hyperkalemia: Continue gentle hydration overnight, patient does take spironolactone will hold patient's spironolactone which will likely help with hyperkalemia. Nephrology consulted will obtain renal ultrasound. Acute DVT of the right lower extremity femoral and posterior tibial veins: Lovenox 1 mg/kg twice daily as patient could possibly require further surgical evaluation with possible debridement of ulceration or biopsy. Can transition to Eliquis or Xarelto later. Venous ulceration lateral right foot: Wound culture obtained, general surgery and wound healing consulted. Will obtain MRI to rule out osteomyelitis. 8.2 cm hypodense lesion right hepatic lobe: We will obtain ultrasound liver, AFP ordered as well. Additional abnormal CT findings-multiple small bilateral pulmonary nodules largest measuring 8.4 mm, small bilateral pleural effusions, lytic lesions second right rib, lateral seventh left rib, vertebral body T12, minimal haziness within the anterior left peritoneum/left greater omentum ascites versus peritoneal carcinomatosis: These were discussed with patient, possible metastatic disease. Continue with work-up as above. Appreciate further input from consultants. DVT PPX: Full dose Lovenox for acute DVT Code status: Full code Discharge Plan: Home Plan to discharge in: Greater than 2 days - Advance Directives Does patient have a Living Will: No Does patient have a Durable POA for Healthcare: No - Code Status/Comfort Care Code Status Assessed: Yes (Full code) Critical Care: No Time Spent Managing Pts Care (In Minutes): 55
[2021-08-10] MEDS ORDERED: ALBUTEROL INHALER 60 PUFF/8 GM IH ONE (01:22)
[2021-08-10] MEDS ORDERED: TRAMADOL HCL 50 MG TAB PO PRN (01:37)
[2021-08-10] MEDS ORDERED: NA CHLORIDE 0.9% 1,000 ML IV SCH (01:37)
[2021-08-10] MEDS ORDERED: ONDANSETRON 4 MG/2 ML VIAL IV PRN (01:37)
[2021-08-10 03:38] LABS: Absolute Lymphocytes (CBC) 0.5 K/uL (0.7-4.9); Basophils % 1.9 % (0-1.3); Hematocrit 41.3 % (39.6-49.0); Lymphocytes % 2.8 % (15.3-44.8); MPV 6.8 fL (7.6-11.3); RBC Red Blood Cell Count 4.81 M/uL (4.33-5.43)
[2021-08-10 03:52] LABS: Albumin 1.6 g/dL (3.4-5.0); Bilirubin Total 0.8 mg/dL (0.2-1.0); Magnesium 2.3 mg/dL (1.8-2.4); Potassium 5.2 mmol/L (3.5-5.1); Protein, Total 6.2 g/dL (6.4-8.2); Thyroid Stimulating Hormone 2.77 uIU/mL (0.360-3.740); Uric Acid 9.6 mg/dL (3.5-7.2)
--- NOTE | 2021-08-10 06:32 | P.PN ---
Subjective Date of Service: 08/10/21 Primary Care Provider: Marilin villatoro transfer to Chief Complaint: Pneumonia Subjective: Other (Patient stable at this time. Blood pressure elevated. Patient afebrile. Patient on room air.) Physical Examination - Vital Signs Temperature: 97.2 F Blood Pressure: 181/72 Pulse: 93 Respirations: 18 Pulse Ox (%): 96 - Studies Laboratory Data (last 24 hrs) 08/09/21 21:10: PT 12.9 H, INR 1.12 08/09/21 21:10: WBC 21.10 H*, Hgb 14.2, Hct 42.7, Plt Count 548 H 08/09/21 21:10: Sodium 131 L, Potassium 5.6 H*, BUN 42 H, Creatinine 1.53 H, Glucose 111 H, Magnesium 2.6 H, Total Bilirubin 0.7, AST 71 H, ALT 37, Alkaline Phosphatase 453 H, Lipase 56 L Assessment & Plan Discharge Plan: Home Plan to discharge in: Greater than 2 days Physician Review Additional Text: COVID: negative CXR: COMPARISON: <Comparisons> FINDINGS: Lines: None. Lungs: Mild ill-defined opacities in the right mid lung and left lung base. Pleural: No significant pleural effusions or pneumothorax. Cardiac: Enlarged cardiopericardial silhouette Bones: No acute fractures. IMPRESSION: Mild ill-defined bilateral opacities. This could reflect mild pneumonia. A chest CT is pending at time of dictation. Right Foot xray: COMPARISON: Abdomen Acute Series dated 07/25/2021; CHEST SINGLE VIEW dated 07/25/2012; CHEST SINGLE VIEW dated 07/02/2012Foot Right 2 View dated 07/21/2012 FINDINGS: The second toe is dislocated at the level of the MTP joint. Partial amputation of the first toe. Advanced midfoot and hindfoot degenerative changes. Peripheral vascular calcifications. No acute fracture . IMPRESSION: 1. No acute fracture of the right foot. 2. Dislocated second toe at the MTP joint. Right Foot CT: COMPARISON: Foot Right 3 View dated 08/09/2021 TECHNIQUE: Axial noncontrast 2 mm images of the foot and ankle were obtained. Sagittal and coronal reformatted images were generated and reviewed. All CT scans are performed using dose optimization technique as appropriate and may include automated exposure control or mA/KV adjustment according to patient size. FINDINGS: No erosive or destructive bone changes seen to localize osteomyelitis. Osteomyelitis can exist prior to radiographic bone destruction. Soft tissue wound near the tip of the distal fibula shows no air, foreign body or drainable fluid collection. Soft tissue wound is present lateral to the fifth metatarsal head. BB marker placed at this site. There is no air, foreign body or drainable fluid collection at this site. Metallic clip is present in the dorsal soft tissues near the proximal shaft first metatarsal. This is presumed to be from prior surgical procedure. No acute bone process is confirmed. No air or foreign body in the soft tissues. Patient has severe deformity of the foot. There is extensive heterotopic bone formation along the anteromedial margin of the distal tibia. Marked deformity is present at the tibiotalar joint space with deformity and fusion of the talus, calcaneus and navicular bones. Cuboid bone remains unfused. Navicular bone is fused to the 3 cuneiform bones which are fused to each other. There is fusion of the second and third metatarsal bases to the middle and lateral cuneiform bones. There are numerous areas of cystic change within the bony structures. IMPRESSION: As detailed above, no erosive or destructive bone changes seen to indicate osteomyelitis. Osteomyelitis can be present prior to radiographic bone destruction and follow-up imaging can be performed as warranted. No air, foreign body or drainable fluid collections seen within the soft tissues at the known wounds nor elsewhere in the foot. ABUS: COMPARISON: Stone Protocol dated 07/23/2021; Renal Ultrasound-Complete dated 08/10/2021; Chest Single View dated 08/09/2021 FINDINGS: Gallbladder size is normal. Gallbladder is packed with numerous 5 mm or less stones and sludge. No gallbladder wall thickening. Common bile duct is normal with no common duct stone identified. Liver size is normal at 14 cm. Coarsened hepatic echogenicity is present. There is a nodular liver capsule contour. In the upper central right lobe a 2.5 cm rounded hypoechoic mass is present. This is the same location as the CT mass but measures smaller. No correlate in size to the CT lesion of July 23. Lesion size can be variable between 2 different modalities. Geographic changes of fatty infiltration and cirrhosis can cause variability in attenuation on a noncontrast CT study. CT imaging with and without contrast would be recommended if the patient can tolerate nonionic CT contrast. Alternatively, MRI imaging of the liver could be performed. MRI contrast would be optimal but the exam should be adequate without contrast. Mild to moderate amount of ascites is present adjacent to the liver. Overall volume of intraperitoneal ascites was not fully assessed on this focused gallbladder/liver ultrasound. Pancreas, spleen and vasculature were not evaluated on this study. IMPRESSION: Normal size gallbladder filled with sludge and multiple 5 mm or less stones. No gallbladder wall thickening. Liver cirrhosis changes are present. A 2.5 cm hypoechoic masses present upper central right lobe of the liver. This is in the same general location as the 7 cm size lesion seen on CT imaging. True lesion of the liver is still concerning. As detailed above, further imaging with contrast CT would be recommended if tolerable by the patient. Alternatively, MR imaging could be performed, preferably with contrast but acceptable without. Renal US: COMPARISON: Abdomen Exam Limited dated 08/10/2021 FINDINGS: The right kidney measures 9.1 x 4.9 x 5.1 cm. The left kidney measures 8.7 x 6.0 x 4.2 cm. Bilateral renal cortical thinning present along with increased cortical echogenicity consistent with underlying medical renal disease. No hydronephrosis or suspicious renal mass. No bladder wall thickening or mass identified. Approximately 2.4 centimeter mobile echogenic focus is seen within the urinary bladder lumen along with additional echogenic debris. Bladder volume was 320 milliliters. Mild to moderate amount of ascites is present with overall ascites volume not fully evaluated on this renal focused examination. IMPRESSION: Underlying medical renal disease findings with no hydronephrosis or renal mass identified. Small bladder stones and/ or echogenic debris within the bladder lumen. No bladder wall mass or bladder wall thickening identified. CT scan: Chest: The lung demonstrated small patchy areas of alveolar airspace densities within the minimal tree-in-bud distribution involving bilateral upper lobes Small right pleural effusion with comprehensive atelectatic changes. Layering high density material within the area of the compressed lung parenchyma could risks og to aspiration of barium. Small trace of left pleural effusion with layering high density material perhaps corresponding to aspiration of barium Small bilateral pulmonary nodularities involving the right middle lobe and inferior finger segment the largest one measuring 8.4 mm medial right cardiac phrenic angle. Possible metastatic disease cannot be excluded. Trachea and mainstem bronchus demonstrated to be unremarkable. Minimal trace of pericardial effusion. Heart is not enlarged. Minimal mitral annular calcification. Minimal internal aortic arch calcification. No significant mediastinal or hilar adenopathy. Left-sided vertebral body lytic lesion C7. Lytic lesion at the lateral aspect of the second rib. Fracture questionable. Minimal lytic lesion to the lateral right rib. Questionable lytic fracture anterior lateral aspect seventh left rib. Posterior seventh ninth left rib. Moderate large ascites. Nodular surface of the liver noted. Large hypodense lesion right hepatic lobe measuring 8.2 cm previously measured 7.6 cm. Minimal haziness within the anterior left peritoneum. Left greater omentum could respond correspond to ascites with possible peritoneal carcinomatosis. Pancreas, spleen, adrenal glands demonstrate to be normal. No focal lesions noted. Gallbladder noted with cholelithiasis. Kidneys demonstrate to be somewhat atrophic. No evidence of nephrolithiasis or hydronephrosis. Stomach, small bowel and large bowel demonstrates to be within normal range. No bowel dilation or free air. Mild fecal stasis noted. Urinary bladder demonstrates to be within normal range. Prostate gland unremarkable. Aorta with minimal arthrosclerotic disease. Impression: Small patchy areas of alveolar airspace densities within the minimal tree-in-bud distribution involving bilateral upper lobes may correspond to infectious versus inflammatory process Small bilateral pleural effusions with layering high density material within the area of compressed lung parenchyma could correspond to aspiration of barium Lytic lesion at the lateral aspect of the second right rib. Fractures with questionable minimal lytic lesion to the lateral right rib. There is a questionable lytic lesion at the anterior lateral aspect of the seventh left rib. Lytic lesion of the vertebral body of T12. Large hypodense lesion right hepatic lobe measuring 8.2 cm previously 7.6 cm. Minimal haziness within the anterior left perineum/left greater omentum could correspond to ascites or the possibility of peritoneal carcinomatosis. Cholelithiasis. Mild fecal stasis. Venous doppler: Impression: Deep vein fibrosis right superficial femoral vein, proximal throughout distal portion. Deep vein thrombosis within the right anterior tibial vein. Rest of deep vein system demonstrates to be patent Physical exam: General: Alert, In no apparent distress, Oriented x3, Obese HEENT: Neck supple Respiratory: Normal air movement, Diminished. Currently on room air Cardiovascular: Regular rate/rhythm, Normal S1 S2 Capillary refill: <2 Seconds Gastrointestinal: Ascites noted Musculoskeletal: No contractures, No erythema, No tenderness Integumentary: Right lateral ulcer. No erythema or exudate. Chronic deformity noted to the feet bilateral. 1+ pain edema to the lower extremities. Neurological: Normal speech, Normal strength at 5/5 x4 extr, Normal tone, Normal affect Lymphatics: No axilla or inguinal lymphadenopathy Impression: Leukocytosis likely secondary to bilateral upper lobe pneumonia with tree-in-bud distribution versus other etiology with abnormal CT scan showing small bilateral pleural effusions lytic lesions to the second right rib/seventh left rib/T12 vertebral body suspicious for possible underlying cancer or metastatic disease versus cardiopulmonary disease Acute on chronic renal disease stage III with hyperkalemia Acute DVT of the right anterior tibial vein with fibrosis to the right superficial femoral vein Lateral right foot ulcer with chronic deformity to the feet bilateral Enlarged 8.2 cm hypodense lesion right hepatic lobe with noted moderate abdominal ascites and nodularity to the liver complicated with haziness within the anterior left perineum/left greater omentum suspect underlying liver cirrhosis with possible carcinomatosis and liver cancer Hypertension GERD Plan: Leukocytosis likely secondary to bilateral upper lobe pneumonia with tree-in-bud distribution versus other etiology with abnormal CT scan showing small bilateral pleural effusions lytic lesions to the second right rib/seventh left rib/T12 vertebral body suspicious for possible underlying cancer or metastatic disease versus cardiopulmonary disease: Patient on IV Levaquin. Patient is a nonsmoker. CT scan and other radiology reviewed. Suspect underlying possible cancer or metastatic disease. Pulmonology consulted to further evaluate. Patient with bilateral pleural effusion with trace pericardial effusion. Will discontinue IV fluid. Will start Lasix 20 mg IV twice daily. Need to obtain echocardiogram to evaluate for possible underlying CHF and evaluate for possible pericardial effusion. Will discuss further with pulmonology for possible pulmonary evaluation for cancer. Blood pressure elevated. Will start metoprolol. Patient with other abnormal findings including DVT now on Lovenox. Patient will need to be switched over to Eliquis or Xarelto at discharge. Patient also with liver cirrhosis and ascites with noted worsening right liver lobe lesion. Nephrology also consulted. No evidence of osteomyelitis to the right foot. Continue antibiotic treatment. Consult wound care to evaluate foot. No need for surgical intervention. Await recommendations by pulmonology, nephrology and surgery. Patient desires skilled placement at discharge. Physical therapy to evaluate. financial services technician to help with this. I will turn the service over to the hospitalist team tomorrow. I will go plan of care with him. Acute on chronic renal disease stage III with hyperkalemia: Discontinue IV fluid. Will start Lasix 20 mg IV twice daily. Patient previously on Aldactone. This has been discontinued. Recheck potassium in 3 hours after Lasix given. Await further recommendations from nephrology. Acute DVT of the right anterior tibial vein with fibrosis to the right superficial femoral vein: Patient remains on Lovenox at 1 mg/kg subcu twice daily. INR within normal range considering patient with underlying liver cirrhosis. Patient will require Eliquis or Xarelto at discharge. Will discuss with pulmonology. Will obtain echocardiogram to further evaluate. Lateral right foot ulcer with chronic deformity to the feet bilateral: This appears chronic and likely a pressure sore. Patient with chronic deformity to the feet bilateral. Will consult wound care to further evaluate. No evidence of osteomyelitis on CT scan. Patient on IV antibiotic therapy. Enlarged 8.2 cm hypodense lesion right hepatic lobe with noted moderate abdominal ascites and nodularity to the liver complicated with haziness within the anterior left perineum/left greater omentum suspect underlying liver cirrhosis with possible carcinomatosis and liver cancer: Ultrasound and CT scan reviewed. Liver lesion has increased in size since last CT scan. Suspect underlying liver cirrhosis with possible carcinomatosis and liver cancer. As mentioned above Aldactone has been discontinued. Will start Lasix IV 20 mg twice daily. Continue diuresis. Will need to investigate this further. Will check with radiology to see if liver biopsy can be considered. Need to investigate if patient has [facility] MRI was recommended but this may not be able to be done due to patient having hardware. AFP obtained. We will also check hepatitis and HIV. Hypertension: Blood pressure elevated. Will start metoprolol 25 mg 1 pill twice daily. Will monitor and adjust medication. GERD: Will start Protonix 40 mg daily. DVT PPX: Full dose Lovenox for acute DVT Code status: Full code Discharge Plan: Patient desires skilled placement at discharge. Time Spent Managing Pts Care (In Minutes): 55
--- NOTE | 2021-08-10 07:53 | RAD REPORT ---
EXAM DESCRIPTION: US - Abdomen Exam Limited - 08/10/2021 7:25 am CLINICAL HISTORY: Please eval liver/gallbladder, ABN CT COMPARISON: Stone Protocol dated 07/23/2021; Renal Ultrasound-Complete dated 08/10/2021; Chest Singl e View dated 08/09/2021 FINDINGS: Gallbladder size is normal. Gallbladder is packed with numerous 5 mm or less stones and sl udge. No gallbladder wall thickening. Common bile duct is normal with no common duct stone identified . Liver size is normal at 14 cm. Coarsened hepatic echogenicity is present. There is a nodular liver ca psule contour. In the upper central right lobe a 2.5 cm rounded hypoechoic mass is present. This is t he same location as the CT mass but measures smaller. No correlate in size to the CT lesion of Novem er 24. Lesion size can be variable between 2 different modalities. Geographic changes of fatty infiltration and cirrhosis can cause variability in attenuation on a noncontrast CT study. CT imaging with and wit hout contrast would be recommended if the patient can tolerate nonionic CT contrast. Alternatively, M RI imaging of the liver could be performed. MRI contrast would be optimal but the exam should be adeq uate without contrast. Mild to moderate amount of ascites is present adjacent to the liver. Overall volume of intraperitonea l ascites was not fully assessed on this focused gallbladder/liver ultrasound. Pancreas, spleen and vasculature were not evaluated on this study. IMPRESSION: Normal size gallbladder filled with sludge and multiple 5 mm or less stones. No gallblad jayro wall thickening. Liver cirrhosis changes are present. A 2.5 cm hypoechoic masses present upper central right lobe of t he liver. This is in the same general location as the 7 cm size lesion seen on CT imaging. True lesion of the liver is still concerning. As detailed above, further imaging with contrast CT wou ld be recommended if tolerable by the patient. Alternatively, MR imaging could be performed, preferab ly with contrast but acceptable without.
--- NOTE | 2021-08-10 07:56 | RAD REPORT ---
EXAM DESCRIPTION: US - Renal Ultrasound-Complete - 08/10/2021 7:25 am CLINICAL HISTORY: ROHINI, HyperK COMPARISON: Abdomen Exam Limited dated 08/10/2021 FINDINGS: The right kidney measures 9.1 x 4.9 x 5.1 cm. The left kidney measures 8.7 x 6.0 x 4.2 cm . Bilateral renal cortical thinning present along with increased cortical echogenicity consistent wit h underlying medical renal disease. No hydronephrosis or suspicious renal mass. No bladder wall thickening or mass identified. Approximately 2.4 centimeter mobile echogenic focus is seen within the urinary bladder lumen along with additional echogenic debris. Bladder volume was 320 milliliters. Mild to moderate amount of ascites is present with overall ascites volume not fully evaluated on this renal focused examination. IMPRESSION: Underlying medical renal disease findings with no hydronephrosis or renal mass identifie d. Small bladder stones and/ or echogenic debris within the bladder lumen. No bladder wall mass or bladd er wall thickening identified.
--- NOTE | 2021-08-10 08:39 | RAD REPORT ---
EXAM DESCRIPTION: CT - Foot Right Wo Con - 08/10/2021 8:06 am CLINICAL HISTORY: R/O osteomyelitis, foot pain, soft tissue wound plantar foot at the first toe and soft tissue wound near lateral malleolus COMPARISON: Foot Right 3 View dated 08/09/2021 TECHNIQUE: Axial noncontrast 2 mm images of the foot and ankle were obtained. Sagittal and coronal r eformatted images were generated and reviewed. All CT scans are performed using dose optimization technique as appropriate and may include automate d exposure control or mA/KV adjustment according to patient size. FINDINGS: No erosive or destructive bone changes seen to localize osteomyelitis. Osteomyelitis can e xist prior to radiographic bone destruction. Soft tissue wound near the tip of the distal fibula show s no air, foreign body or drainable fluid collection. Soft tissue wound is present lateral to the fif th metatarsal head. BB marker placed at this site. There is no air, foreign body or drainable fluid c ollection at this site. Metallic clip is present in the dorsal soft tissues near the proximal shaft f irst metatarsal. This is presumed to be from prior surgical procedure. No acute bone process is confirmed. No air or foreign body in the soft tissues. Patient has severe deformity of the foot. There is extensive heterotopic bone formation along the ant eromedial margin of the distal tibia. Marked deformity is present at the tibiotalar joint space with deformity and fusion of the talus, calcaneus and navicular bones. Cuboid bone remains unfused. Navicu lar bone is fused to the 3 cuneiform bones which are fused to each other. There is fusion of the seco nd and third metatarsal bases to the middle and lateral cuneiform bones. There are numerous areas of cystic change within the bony structures. IMPRESSION: As detailed above, no erosive or destructive bone changes seen to indicate osteomyelitis . Osteomyelitis can be present prior to radiographic bone destruction and follow-up imaging can be pe rformed as warranted. No air, foreign body or drainable fluid collections seen within the soft tissues at the known wounds nor elsewhere in the foot.
[2021-08-10] MEDS ORDERED: HYDROCODONE/APAP 5/325 MG TAB PO PRN (09:10)
[2021-08-10] MEDS: FUROSEMIDE 20 MG/ 2ML VIAL IV SCH ×2 (10:08→17:16)
[2021-08-10] MEDS: Enoxaparin 120 MG/0.8 ML SYR SQ SCH ×2 (10:08→21:16)
[2021-08-10] MEDS: METOPROLOL TAR 25 MG TAB PO SCH ×2 (10:08→17:16)
[2021-08-10] MEDS ORDERED: FAMOTIDINE 20 MG TAB PO SCH (21:00)
[2021-08-11] MEDS ORDERED: Levofloxacin500mg IV 500 MG/100 ML BAG IV SCH (01:00)
[2021-08-11 04:07] LABS: Absolute Lymphocytes (CBC) 0.7 K/uL (0.7-4.9); Basophils % 0.7 % (0-1.3); Hematocrit 35.7 % (39.6-49.0); MPV 6.6 fL (7.6-11.3); RBC Red Blood Cell Count 4.18 M/uL (4.33-5.43)
[2021-08-11 04:28] LABS: Albumin 1.5 g/dL (3.4-5.0); Bilirubin Total 0.6 mg/dL (0.2-1.0); Magnesium 2.4 mg/dL (1.8-2.4); Potassium 4.5 mmol/L (3.5-5.1); Protein, Total 5.7 g/dL (6.4-8.2)
[2021-08-11] MEDS: PANTOPRAZOLE 40MG TABLET PO SCH (06:50)
[2021-08-11] MEDS: METOPROLOL TAR 25 MG TAB PO SCH ×2 (06:51→17:27)
[2021-08-11] MEDS: FUROSEMIDE 20 MG/ 2ML VIAL IV SCH ×2 (09:09→17:27)
[2021-08-11] MEDS: THIAMINE HCL 100 MG TABLET PO SCH (09:09)
[2021-08-11] MEDS: Enoxaparin 120 MG/0.8 ML SYR SQ SCH (09:09)
[2021-08-11] MEDS: FOLIC ACID 1 MG TABLET PO SCH (09:09)
--- NOTE | 2021-08-11 10:27 | RAD REPORT ---
EXAM DESCRIPTION: CT - Chest Abd Pelvis Wo Con - 08/10/2021 6:39 am CLINICAL HISTORY: 76 years, Male, Cough;Abdominal distention;Pain COMPARISON: None. TECHNIQUE: Multiple transaxial tomograms of the chest, abdomen and pelvis were performed from the shauna ng apices to the symphysis pubis 5 mm slice thickness at 5 mm interval reconstruction, without admini stration of IV and oral contrast. Multiplanar reformats in the sagittal and coronal plane were generated and reviewed. This exam was performed according to our departmental dose-optimization protocol, which includes auto mated exposure control, adjustment of the mA and/or kV according to patient size and/or use of iterat teresa reconstruction technique. FINDINGS: The lack of IV and oral contrast limits evaluation of solid organs, subtle lesions cannot be excluded. Chest: The lung demonstrated small patchy areas of alveolar airspace densities with minimal tree-in-b ud distribution involving the bilateral upper lobes. Small right pleural effusion with compressive atelectatic changes. Layering high density material wit hin the area of compressed lung parenchyma could correspond to aspiration of barium. Small trace of left pleural effusion with layering high density material perhaps corresponding to asp iration of barium. There is small bilateral pulmonary nodularities involving the right middle lobe and inferior finger s egment the largest one measuring 8.4 mm medial right cardiac phrenic angle on image 36, possibility o f metastatic disease cannot be excluded. The trachea and mainstem bronchus demonstrate to unremarkable. There is minimal trace of pericardial effusion The heart is not enlarged. Minimal mitral annular consultation. There is minimal intimal aortic arch calcification. There are no significant mediastinal/or hilar lymphadenopathy. Bilateral gynecomastia. Left side vertebral body lytic lesion C7. Lytic lesion at the lateral aspect second right rib. Fractures with questionable minimal lytic lesion lateral right rib. There is a questionable lytic fracture anterior lateral aspect seventh left rib. There is a posterior seventh ninth left rib. Abdomen and pelvis: There is a moderate large ascites. Nodular surface of the liver. Large hypodense lesion right hepatic lobe measuring approximately 8.2 cm on image 52, previously measured approximately 7.6 cm. Minimal haziness within the anterior left peritoneum/left greater omentum could correspond to ascites /or the possibility of peritoneal carcinomatosis cannot be excluded. Grossly the unopacified pancreas, spleen and adrenal glands demonstrate to be within normal limits, n o significant focal lesions were identified. The gallbladder demonstrated presence of punctate high density material corresponding to cholelithias is The kidneys demonstrate to be somewhat atrophic. There is no evidence for nephrolithiasis and/or hy dronephrosis. Grossly the unopacified stomach, small bowel and large bowel demonstrate to be within normal limits. There is no evidence for bowel dilatation/or free air. Mild fecal stasis. The urinary bladder demonstrate to be within normal limits. The prostate gland is unremarkable. The a malik demonstrate minimal atherosclerotic disease. There is no retroperitoneal lymphadenopathy. The bone windows demonstrate superior endplate compression deformity at T10 and L1 vertebral body. Ly tic lesion at the vertebral body of T12. Degenerative changes at L5/S1. IMPRESSION: Small patchy areas of alveolar airspace densities with minimal tree-in-bud distribution involving the bilateral upper lobes, which may correspond to an infectious or inflammatory process. Small bilateral pleural effusions with layering high density material within the area of compressed l pa parenchyma could correspond to aspiration of barium. Lytic lesion at the lateral aspect of the second right rib. Fractures with questionable minimal lytic lesion lateral right rib. There is a questionable lytic lesion at the anterior lateral aspect sevent h left rib. Lytic lesion at the vertebral body of T12. Large hypodense lesion right hepatic lobe measuring approximately 8.2 cm, previously measured approxi mately 7.6 cm. Minimal haziness within the anterior left peritoneum/left greater omentum could correspond to ascites /or the possibility of peritoneal carcinomatosis cannot be excluded. Cholelithiasis. Mild fecal stasis. Electronically signed by: Blake Ray MD 08/09/2021 11:36 PM [employer] Due to temporary technical issues with the PACS/Fluency reporting system, reports are being signed by the in house radiologists without review as a courtesy to insure prompt reporting. The interpreting radiologist is fully responsible for the content of the report.
--- NOTE | 2021-08-11 11:06 | RAD REPORT ---
EXAM DESCRIPTION: US - Extrem Venous W Compress Isaias - 08/10/2021 12:07 am ADDENDUM #1 THIS REPORT CONTAINS FINDINGS THAT MAY BE CRITICAL TO PATIENT CARE: Called, telephoned, verbal repo rt was given oral to Dr Gray at 12:36 AM WHIRLEY OPERATOR on 08/10/2021. Electronically signed by: Blake Ray MD 08/10/2021 2:28 AM WHIRLEY OPERATOR End of Addendum EXAM DESCRIPTION: Extrem Venous W Compress Isaias 08/10/2021 12:26 AM WHIRLEY OPERATOR CLINICAL HISTORY: 76 years, Male, Pain;Swelling COMPARISON: None. FINDINGS: Multiple grayscale images as well as duplex Doppler ultrasound of both lower extremities w ere performed. There is partial echogenic material within the right femoral vein at the level of the bifurcation ext ending into the proximal mid distal portion corresponding to nonocclusive deep vein thrombosis. There is lack of flow and compressibility right posterior tibial vein corresponding to a parenchymal process. The rest of the venous system of the right lower extremity and the left lower extremity venous system . IMPRESSION: DEEP VEIN FIBROSIS RIGHT SUPERFICIAL FEMORAL VEIN, PROXIMAL THROUGH DISTAL PORTION. DEEP VEIN THROMBOSIS WITHIN THE RIGHT ANTERIOR TIBIAL VEIN. THE REST OF THE DEEP VENOUS SYSTEM DEMONSTRATE TO BE PATENT. Electronically signed by: Blake Ray MD 08/10/2021 12:30 AM WHIRLEY OPERATOR Due to temporary technical issues with the PACS/Fluency reporting system, reports are being signed by the in house radiologists without review as a courtesy to insure prompt reporting. The interpreting radiologist is fully responsible for the content of the report.
--- NOTE | 2021-08-11 11:33 | CON ---
Date of Consultation: 08/10/2021 Chief Complaint: Acute kidney injury associated with hyperkalemia and hyponatremia. History Of Present Illness: The patient is a 76-year-old man with history of hypertension, who presented to emergency room with generalized pain, weakness, cough, and production of sputum over the last 2 days. The patient was evaluated in the emergency room and was found to [place] [address], platelet count was 548, potassium 5.6. Sodium 141, bicarbonate 20, BUN 52, creatinine 1.53, lactic acid was 2.8, calcium 10.1, magnesium 2.6. BNP 624. Procalcitonin 1.57. TSH 1.78. Urinalysis did not show active urinary sediment, chest x-ray demonstrated bilateral opacities, which could reflect pneumonia. CT scan of the abdomen and pelvis without contrast showed areas of alveolar changes. The patient denied renal coli, hematuria, dysuria. He is tolerating p.o. intake. He has hearing impairment, although he denies complaints. Review of Systems: Constitutional: Denies fever or chills. Eyes: Denies vision change. Ears, Nose, Mouth, and Throat: Denies sore throat or earache. Respiratory: Has cough, increasing weakness. Denies hemoptysis. : Denies dysuria, hematuria, incomplete voiding. All other systems reviewed and all are negative. Past Medical History: Hypertension nonhealing wound to lower extremities. Family History: No kidney disease. Social History: Never smoked. No alcohol. No illicit drugs. Physical Examination: General: Patient is awake, alert, follows commands. Eyes: Anicteric sclerae. EOMI. Ear, Nose, Mouth, and Throat: Oral mucosa moist. No pallor. Neck: Supple. No bruits. Lungs: Clear to auscultation bilaterally. Heart: S1, S2. Abdomen: Soft, benign. Extremities: Edema and chronic dermatitis present in both pretibial areas. Laboratory Data: WBC 21.1, hemoglobin 14.2, hematocrit 42.7, platelet count 548. Sodium 141, potassium 5.6, BUN 42, creatinine 1.53, glucose 111, magnesium 2.6, lipase 56. Impression And Plan: 1. Acute kidney injury, nonoliguric, multifactorial. The patient was taking Bactrim at home for presumptive urinary tract infection and prostatitis. The patient will need a urology consultation for possible bladder stone. 2. Leukocytosis, secondary to bilateral upper lobe pneumonia. The patient will continue antibiotics. The patient will have a workup done to rule out metastatic disease. There is a possible pulmonary nodule present on CT scan. Small bilateral pleural effusion and lytic lesions present in the 2nd right rib as well as lateral 7th left rib, possible peritoneal carcinomatosis. 3. Acute kidney injury with hyperkalemia. Continue hydration. The patient was taking spironolactone and Bactrim which both are contributory to hyperkalemia. Continue normal saline for hydration. The patient may require Kayexalate. The patient was found to have possible bladder stone. The patient will need a urology consultation for bladder stone and urinary retention, continue hua catheter. EB/MODL Voice ID: [id number] Report ID: [id number] MTDD
--- NOTE | 2021-08-11 12:35 | P.CNS ---
Date of Consult: 08/11/21 Reason for Consult: Pneumonia Primary Care Provider: Marilin villatoro transfer to Chief Complaint: Pneumonia History of Present Illness: Patient is 76 years of age history of hypertension admitted with cough increasing sputum he is very hard of hearing does not have his hearing aids has never smoked white count was elevated he does have bilateral infiltrate with right-sided pleural effusion CT scan of the abdomen was also very abnormal bilateral lower extremity edema also had a history of DVT 7 Allergies Sulfa (Sulfonamide Allergy (Severe, Uncoded 08/10/21 03:25) Itching/Hives/Rash Peanut Allergy (Uncoded 08/10/21 03:25) Shortness of breath Sulfa (Sulfonamide Anti Allergy (Uncoded 08/10/21 03:25) Hives/Rash Home Medications: Furosemide 1 tab PO DAILY 08/10/21 Metoprolol Tartrate 12.5 mg PO DAILY 08/10/21 Spironolactone 12.5 mg PO BID 08/10/21 - Past Medical/Surgical History -: Hypertension -: Multiple surgeries on bilateral feet Psychosocial/ Personal History: patient is retired and lives at home with his - Social History Smoking Status: Never smoker Alcohol use: Yes CD- Drugs: No Caffeine use: Yes Place of Residence: Home Review of Systems is unable to be obtained Respiratory: Shortness of Breath Physical Examination Temp Pulse Resp BP Pulse Ox 97.0 F 83 16 121/63 95 08/11/21 12:00 08/11/21 12:00 08/11/21 12:00 08/11/21 12:00 08/11/21 12:00 General: Alert, Cooperative Respiratory: Clear to auscultation bilaterally, Diminished Cardiovascular: Regular rate/rhythm, Normal S1 S2, Edema Gastrointestinal: Normal bowel sounds, Soft and benign Musculoskeletal: Swelling - Problems (1) CHF (congestive heart failure) Current Visit: Yes Status: Acute Plan: Patient is 76 years of age with metabolic syndrome I suspect that he has underlying congestive heart failure however his CT scan shows multiple lytic lesions mass in the liver possible peritoneal carcinomatosis patient has cirrhosis of the liver is vital signs are unremarkable oxygenation satisfactory significant electrolyte abnormality with hypercalcemia hyperkalemia on admission abnormal liver function test patient's white count is declining can change to p.o. levofloxacin cultures are negative possible pneumonia echocardiogram is pending appears to have an ulcer in the right lateral foot no evidence of osteomyelitis BNP elevated test pending Qualifiers: Heart failure chronicity: unspecified (2) DVT (deep venous thrombosis) Current Visit: Yes Status: Acute Plan: Patient has an acute DVT on the right leg changed to p.o. Xaveronique Qualifiers: Chronicity: acute Laterality: right
[2021-08-11] MEDS: RIVAROXABAN 15 MG TABLET PO SCH (21:00)
[2021-08-11 21:20] LABS: Potassium 4.1 mmol/L (3.5-5.1)
--- NOTE | 2021-08-11 21:47 | PN ---
Date of Progress Note: 08/11/2021 Chief Complaint: Acute kidney injury associated with hyperkalemia, hyponatremia. Subjective: Renal function has not improved over last 24 hours. Patient has nonoliguric urine outpu t. He had a Orellana catheter placed because of possible bladder stone. Orellana catheter was placed and the patient has nonoliguric urine output. The patient came to the emergency room because he had a co ugh, weakness, generalized pain and productive cough with sputum for last 2 days prior to admission. In the emergency room, he was found to have white count of 21,000, platelet count 548, potassium 5.6 , bicarbonate 20, sodium 131, BUN 52, creatinine 1.53. Urinalysis did not show active urinary sedime nt. Workup is pending to rule out proteinuria. CT scan of the abdomen and pelvis without contrast s howed areas of alveolar densities. Renal ultrasound was done to assess kidney echotexture. Review of Systems: Denies fever or chills. Objective: Lungs: Clear to auscultation bilaterally. Heart: S1, S2. Abdomen: Soft, benign. Extremities: Edema in both ankles. Impression And Plan: 1.Acute kidney injury due to multiple causes. Patient was taking Bactrim at home for presumptive. 2.urinary tract infection and prostatitis. The patient will need urology consultation for possible bladder stone. Continue Orellana catheter to prevent urinary retention. 3.Leukocytosis secondary to bilateral upper lobe pneumonia. Continue antibiotics, adjust to renal d ose. The patient will need workup to rule out metastatic disease. There is possible pulmonary nodul e present on the CT scan. 4.Acute kidney injury with hyperkalemia. Continue hydration. Patient was taking spironolactone and Bactrim, which are contributory to hyperkalemia and renal function decline. Patient will continue normal saline for hydration and he may require Kayexalate to monitor and control potass ium level. EB/MODL Voice ID: [id number] Report ID: [id number]
[2021-08-12 04:22] LABS: Absolute Lymphocytes (CBC) 0.9 K/uL (0.7-4.9); Lymphocytes % 5.9 % (15.3-44.8); MPV 6.7 fL (7.6-11.3); RBC Red Blood Cell Count 4.34 M/uL (4.33-5.43)
[2021-08-12 04:40] LABS: Albumin 1.5 g/dL (3.4-5.0); Bilirubin Total 0.5 mg/dL (0.2-1.0); Magnesium 2.6 mg/dL (1.8-2.4); Potassium 4.3 mmol/L (3.5-5.1); Protein, Total 5.9 g/dL (6.4-8.2)
[2021-08-12] MEDS: METOPROLOL TAR 25 MG TAB PO SCH ×2 (06:29→18:11)
[2021-08-12] MEDS: PANTOPRAZOLE 40MG TABLET PO SCH (06:30)
--- NOTE | 2021-08-12 07:51 | ECHO ---
HEIGHT: 6 ft 2 in WEIGHT: 251 lb 0 oz DATE OF STUDY: 08/11/[address]: Cristiano Andujar DO 2-DIMENSIONAL: YES M.MODE: YES DOPPLER: YES COLOR FLOW: YES TDS: NO PORTABLE: NO DEFINITY: NO BUBBLE STUDY: NO DIAGNOSIS: DVT, HYPERTENSION, POSSIBLE LUNG CANCER WITH METS CARDIAC HISTORY: CATHERIZATION: NO SURGERY: NO PROSTHETIC VALVE: NO PACEMAKER: NO MEASUREMENTS (cm) DIASTOLIC (NORMALS) SYSTOLIC (NORMALS) IVSd 1.0 (0.6-1.2) LA Diam 2.7 (1.9-4.0) LVEF 58% LVIDd 3.3 (3.5-5.7) LVIDs 2.3 (2.0-3.5) %FS 30% LVPWd 1.1 (0.6-1.2) Ao Diam 3.0 (2.0-3.7) 2 DIMENSIONAL ASSESSMENT: RIGHT ATRIUM: NORMAL LEFT ATRIUM: NORMAL RIGHT VENTRICLE: NORMAL LEFT VENTRICLE: NORMAL TRICUSPID VALVE: MITRAL VALVE: NORMAL PULMONIC VALVE: NORMAL AORTIC VALVE: PERICARDIAL EFFUSION: NONE AORTIC ROOT: NORMAL LEFT VENTRICULAR WALL MOTION: NORMAL DOPPLER/COLOR FLOW: SEE BELOW COMMENTS: NORMAL LEFT VENTRICULAR EJECTION FRACTION 55-60%. NORMAL WALL MOTION. MILD TRICUSPID AND AORTIC REGURGITAION. TECHNOLOGIST: Gil MCMILLAN
--- NOTE | 2021-08-12 08:52 | P.PN ---
Subjective Date of Service: 08/13/21 Primary Care Provider: Marilin villatoro transfer to Chief Complaint: Pneumonia Subjective: No new changes Physical Examination - Vital Signs Temperature: 97 F Blood Pressure: 118/59 Pulse: 84 Respirations: 18 Pulse Ox (%): 94 - Physical Exam General: Other (Appears chronically ill) HEENT: Atraumatic, Normocephalic Neck: Supple Respiratory: Diminished Cardiovascular: No rubs, No murmurs Gastrointestinal: Soft and benign, No guarding Musculoskeletal: Swelling Integumentary: No warmth Neurological: Normal tone Urinary: Other (No bladder distention) External genitalia: Deferred Rectal: Deferred - Studies Microbiology Data (last 24 hrs): 08/09/21 21:25 Wound - Right Foot Gram Stain - Final Assessment And Plan - Plan 1. Acute kidney injury due to multiple causes. SCr worsening. Switch NS gtt to D5W gtt at 50 cc/hr as he is already Na overloaded. Dc protonix. Cont hua. 2. Leukocytosis secondary to bilateral upper lobe pneumonia. +R foot wound. Continue antibiotics, adjust to renal dose. The patient will need workup to rule out metastatic disease. There is possible pulmonary nodule present on the CT scan. 3. Liver cirrhosis w/ ascites w/ R lobe lesion & T12 vertebra & rib lytic lesions. +liver synthetic dysfxn. +lactic acidosis. F/u AFP & ammonia level. 4. Volume overload w/ pleural & pericardial effusion & ascites & BLE edema & +JVD. Resume lasix 40 mg IV bid. 5. Hyponatremia. Corrected serum Na 131. Lasix as above. Encourage po solid food intake. Avoid Na load po or IV as he is already Na overloaded. If serum Na drops further, give Tolvaptan. 6. Hyperkalemia. Improved. Resume lasix. Continue hydration. Patient was taking spironolactone and Bactrim, which are contributory to hyperkalemia and renal function decline. 7. Secondary hyperaldosteronism. Seen on urine chem on 08/12. Likely 2/2 liver disease. No e/o pulmo Htn on chest CT. Will need tomasa at some point. Resume lasix. 8. Respi alkalosis likely chronic, likely 2/2 chronic liver dse. No indication for bicarb therapy. 9. RLE DVT. Lovenox 10. Hypercalcemia. Corrected serum Ca 11.2. Suspect 2/2 underlying metastatic process + hypomobility. Check PTH & vit D level.
[2021-08-12] MEDS: MEDIHONEY 44 ML TOPICAL TUBE TOP SCH (09:00)
[2021-08-12] MEDS: THIAMINE HCL 100 MG TABLET PO SCH (09:08)
[2021-08-12] MEDS: levoFLOXacin 250 MG TAB PO SCH (09:08)
[2021-08-12] MEDS: RIVAROXABAN 15 MG TABLET PO SCH ×2 (09:08→21:09)
[2021-08-12] MEDS: FUROSEMIDE 20 MG/ 2ML VIAL IV SCH (09:09)
[2021-08-12] MEDS: FOLIC ACID 1 MG TABLET PO SCH (09:09)
[2021-08-12] MEDS ORDERED: NA CHLORIDE 0.9% 1,000 ML IV SCH (11:00)
[2021-08-12 14:54] LABS: Blood O2 Saturation 94.4 % (92-98.5)
[2021-08-12 14:55] LABS: Arterial Blood Carboxyhemoglob 1.1 % (0-1.5); Blood Gas Oxyhemoglobin 92.4 % (94-97)
[2021-08-12 15:31] LABS: Urine Appearance CLOUDY (Clear); Urine Bilirubin NEGATIVE (Negative); Urine Blood 3+ (Negative); Urine Color YELLOW (Yellow); Urine Glucose NEGATIVE (Negative); Urine Protein TRACE (Negative); Urine Specific Gravity 1.015 (1.005-1.030); Urine pH 5.5 (5.0-7.0)
[2021-08-12 15:57] LABS: UR SODIUM < 5 mmol/L (27-287)
[2021-08-12 16:17] LABS: Urine Amorphous Sediment 2+ /HPF (NONE SEEN); Urine Bacteria <20 /HPF (NONE SEEN); Urine RBC >50 /HPF (NONE SEEN)
--- NOTE | 2021-08-12 21:03 | CON ---
Reason For Consultation: Acute kidney injury, suspected bladder calculus. History Of Present Illness: Mr. Hernandez is a 76-year-old gentleman with a history of hypertension that is medicated, who was admitted a couple of days ago with suspected bilateral pneumonia and a history of prior treatment with Bactrim for UTI or prostatitis. He indicates he has been seen at the [facility] and they surveyed his urine there and told him he had an infection. He has otherwise been asymptomatic of infection with no dysuria or gross hematuria. He also denies any significant bothersome urinary symptoms noting he only voids 2 or 3 times a day and has nocturia x2. While he does note the stream is occasionally weak and rarely he may need to push to void, he has no urge incontinence and otherwise feels no issues voiding. He has never been medicated for lower urinary obstructive symptoms. He is incredibly hard of hearing and this made complete history taking challenging. Review of the CT of the chest, abdomen and pelvis performed revealed the presence of bilateral renal atrophy without intrarenal calculus. Somewhat distended appearing bladder without visible bladder calculus though significant abdominal ascites also noted extending into the pelvis. Physical Examination: General: The patient is lying in bed comfortably and in no acute distress. There is no dyspnea, coughing, or signs of respiratory distress. Abdomen: Soft, nontender, nondistended, and no masses are palpable. Genitalia: He is circumcised without lesion. His meatus is orthotopic and a urethral Orellana catheter is in place draining clear yellow urine. Laboratory Data: Laboratory analysis revealed an elevated creatinine that seemed to resolve to a baseline for 1 day yesterday before again being elevated above 2. He also had an elevated white count. Assessment And Recommendations: This is an 76-year-old gentleman with hypertension, admitted for pneumonia with a history of presumptive urinary tract infection/prostatitis, treated with Bactrim, now with abdominal ascites associated with bilateral renal atrophy and acute kidney injury of unclear origin. Nephrology consult specialists are managing the patient's care and have placed a Orellana catheter for the last 2 days according to the patient, but his renal function remains elevated. While the catheter is in place, if there is no other explanation for the abdominal ascites, a CT cystogram may be helpful to rule out an unlikely bladder perforation event. Alternatively, the patient may be started on Flomax 0.4 mg nightly and should be given a voiding trial where the catheter is removed probably at 7 a.m. and the patient allowed to void. If he is unable to void by 1 p.m., a catheter should be reinserted before 3 p.m. Should he be successfully able to void, a bladder scan postvoid residual assessment should be made, and if his postvoid residual is greater than the void volume, a catheter should be reinserted. I provided the patient my card and recommended he follow up with me in the Urology Clinic where we can assess the anatomy of any potential obstruction and rule out the concern for a bladder calculus, though none is visible on CT. This would also be important to evaluate the source of his suspected UTI/prostatitis. JACOB/JUANITA Voice ID: [id number] Report ID: [id number] MTDD
[2021-08-13] MEDS ORDERED: Levofloxacin500mg IV 500 MG/100 ML BAG IV SCH (01:00)
[2021-08-13] MEDS: D5W 1,000 ML IV SCH ×2 (03:55→22:41)
[2021-08-13] MEDS: METOPROLOL TAR 25 MG TAB PO SCH ×2 (05:32→17:55)
[2021-08-13 07:23] LABS: Absolute Lymphocytes (CBC) 0.8 K/uL (0.7-4.9); Basophils % 0.4 % (0-1.3); Hematocrit 37.7 % (39.6-49.0); Lymphocytes % 4.7 % (15.3-44.8); MPV 6.8 fL (7.6-11.3); RBC Red Blood Cell Count 4.47 M/uL (4.33-5.43)
[2021-08-13 07:29] LABS: Albumin 1.6 g/dL (3.4-5.0); Bilirubin Total 0.5 mg/dL (0.2-1.0); Magnesium 2.4 mg/dL (1.8-2.4); Potassium 3.6 mmol/L (3.5-5.1)
[2021-08-13 08:22] LABS: Blood Morphology Comment NOT SEEN (NOT SEEN); Platelet Estimate ADEQ
[2021-08-13] MEDS ORDERED: FUROSEMIDE 40 MG/4 ML VIAL IV SCH (09:00)
[2021-08-13] MEDS: levoFLOXacin 250 MG TAB PO SCH (09:50)
[2021-08-13] MEDS: RIVAROXABAN 15 MG TABLET PO SCH ×2 (09:50→20:48)
[2021-08-13] MEDS: FOLIC ACID 1 MG TABLET PO SCH (09:50)
[2021-08-13] MEDS: MEDIHONEY 44 ML TOPICAL TUBE TOP SCH (09:50)
[2021-08-13] MEDS: THIAMINE HCL 100 MG TABLET PO SCH (09:50)
[2021-08-13] MEDS ORDERED: ALBUMIN HUMAN 25% 100 ML IV ONE (10:54)
--- NOTE | 2021-08-13 11:00 | P.PN ---
Subjective Date of Service: 08/11/21 Patient states he feels better. However renal function has worsened. Patient with questionable bladder a ureteral stone noted. Urology consultation pending. Continue to monitor renal function closely. Review of Systems 10-point ROS is otherwise unremarkable Physical Examination - Vital Signs Temperature: 96.6 F Blood Pressure: 127/61 Pulse: 76 Respirations: 18 Pulse Ox (%): 94 - Physical Exam General: Alert, In no apparent distress, Oriented x3 Respiratory: Clear to auscultation bilaterally, Normal air movement Cardiovascular: Regular rate/rhythm, Normal S1 S2, No murmurs Gastrointestinal: Normal bowel sounds, Soft and benign, Non-distended, Tenderness Musculoskeletal: No clubbing, No swelling, No tenderness Neurological: Sensation intact, Cranial nerves 3-12 intact - Studies Microbiology Data (last 24 hrs): 08/09/21 21:25 Wound - Right Foot Gram Stain - Final 08/09/21 21:25 Wound - Right Foot Culture & Sensitivity - Final Pseudomonas Aeruginosa Medications List Reviewed: Yes Assessment & Plan - Problems (Diagnosis) (1) Nephrolithiasis Current Visit: Yes Status: Acute (2) Acute renal insufficiency Current Visit: Yes Status: Acute (3) 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 Consult Urology 2. Monitor renal function 3. [facility] to further evaluate liver mass 4. Gentle hydration 5. Monitor sodium level 6. Strict blood pressure control 7. Pain control 8. GI and DVT prophylaxis Discharge Plan: Home Plan to discharge in: Greater than 2 days - Advance Directives Does patient have a Living Will: No Does patient have a Durable POA for Healthcare: No - Code Status/Comfort Care Code Status Assessed: Yes Code Status: Full Code Critical Care: No Time Spent Managing PTS Care (In Minutes): 35
--- NOTE | 2021-08-13 11:08 | P.PN ---
Date of Service: 08/12/21 Subjective Patient is having no complaints. However, scheduled to get cystoscopy today per Urology. Renal function is worsening however. Will give IV hydration. Review of Systems 10-point ROS is otherwise unremarkable Physical Examination - Vital Signs Reviewed - Physical Exam General: Alert, In no apparent distress, Oriented x3 Respiratory: Clear to auscultation bilaterally, Normal air movement Cardiovascular: Regular rate/rhythm, Normal S1 S2, No murmurs Gastrointestinal: Normal bowel sounds, Soft and benign, Non-distended, Tenderness Musculoskeletal: No clubbing, No swelling, No tenderness Neurological: Sensation intact, Cranial nerves 3-12 intact Assessment & Plan - Problems (Diagnosis) (1) Nephrolithiasis Current Visit: Yes Status: Acute (2) Acute renal insufficiency Current Visit: Yes Status: Acute (3) 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 Consulted Urology-cystoscopy today 2. Monitor renal function-slowly worsening 3. Outpatient follow [facility] per patient's request to further evaluate liver mass; patient not wanting any further workup in-house 4. Change fluids to D5 water 5. Monitor sodium level 6. Strict blood pressure control 7. Pain control 8. Out of bed and ambulate 9. GI and DVT prophylaxis Discharge Plan: Home with outpatient [facility] follow-up Plan to discharge in: Greater than 2 days - Advance Directives Does patient have a Living Will: No Does patient have a Durable POA for Healthcare: No - Code Status/Comfort Care Code Status Assessed: Yes Code Status: Full Code Critical Care: No Time Spent Managing PTS Care (In Minutes): 30
--- NOTE | 2021-08-13 11:09 | P.PN ---
Date of Service: 08/13/21 Subjective Patient status post J stent for nephrolithiasis. Plan is to remove the Orellana catheter today per Urology. Patient was not able to void after 6 hrs. Orellana catheter was replaced. Patient is feeling better but his renal function is still worsening. If his renal function turned around then we should be able to discharge patient home. Review of Systems 10-point ROS is otherwise unremarkable Physical Examination - Vital Signs Reviewed - Physical Exam General: Alert, In no apparent distress, Oriented x3 Respiratory: Clear to auscultation bilaterally, Normal air movement Cardiovascular: Regular rate/rhythm, Normal S1 S2, No murmurs Gastrointestinal: Normal bowel sounds, Soft and benign, Non-distended, Tenderness Musculoskeletal: No clubbing, No swelling, No tenderness Neurological: Sensation intact, Cranial nerves 3-12 intact Assessment & Plan - Problems (Diagnosis) (1) Nephrolithiasis Current Visit: Yes Status: Acute (2) Acute renal insufficiency Current Visit: Yes Status: Acute (3) 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 Consulted Urology-status post cystoscopy yesterday with stent placement. Patient not able to voice still replaced Orellana catheter. Probably go home with a leg bag. 2. Monitor renal function; plateaued and will continue to monitor 3. Outpatient follow-up with the [facility] per patient's request to further evaluate liver mass; patient not wanting any further workup in-house 4. Change fluids to D5 water 5. Monitor sodium level 6. Strict blood pressure control 7. Pain control 8. Out of bed and ambulate 9. GI and DVT prophylaxis Discharge Plan: Home with outpatient [facility] follow-up Plan to discharge in: Greater than 2 days - Advance Directives Does patient have a Living Will: No Does patient have a Durable POA for Healthcare: No - Code Status/Comfort Care Code Status Assessed: Yes Code Status: Full Code Critical Care: No Time Spent Managing PTS Care (In Minutes): 30
--- NOTE | 2021-08-13 12:03 | PN ---
Date of Progress Note: 08/13/2021 Subjective: The patient was admitted with acute kidney injury secondary to over volume. Kidney function has plateaued. Renal ultrasound was negative for any obstructive uropathy. The patient found to have ascites with metastasis, but again no obstructive uropathy. Physical Examination: Vital Signs: When I saw the patient; blood pressure 118/56, pulse of 76, afebrile. Chest: Clear to auscultation. Heart: S1, S2. Regular. Systolic murmur. Abdomen: Ascites. Extremities: Trace edema. Neurologic: Alert, oriented. No focality. Laboratory Data: Sodium 132, potassium 3.6, bicarb 20, BUN 59, creatinine 2.6, GFR 23, and calcium of 9. WBC 16.9, H and H 12.6/37. Urinalysis positive for infection. Current Medications: Include: 1. Levaquin. 2. Xarelto. 3. Metoprolol. 4. Lasix. 5. Zofran. Assessment And Plan: 1. Acute kidney injury secondary to cardiorenal looked to me, started to be on the normal volume side. I again go ahead and hold the Lasix for the time being and we will follow up. We will monitor the patient closely. The patient has overall poor prognosis. 2. Hypertension, controlled, optimal. Continue current medication. 3. Urinary tract infection. The patient is status post outpatient treatment with Bactrim with the acute kidney injury. Keep holding Bactrim for the time being and we will follow up. 4. Liver mass with metastasis as by primary. 5. Hyponatremia secondary to cirrhosis, stable. No symptoms. We will monitor. 6. Hypokalemia. With the presence of acute kidney injury, we will monitor cautiously. time spend exam the patient face to face , placing order , review the date lab and radiology , discussed the case with steam cleaning machine operator including nursing , and other database reporting consultant and hospitalist 45 min XIMENA/JUANITA Voice ID: [id number] Report ID: [id number] MARGARET
[2021-08-13 13:48] LABS: HIV AG/AB 4TH GEN Non-reactive (Non-reactive)
[2021-08-13 21:21] LABS: Albumin, (SPE) 1.9 g/dL (3.8-4.8); Alpha-1-Globulins 0.7 g/dL (0.2-0.3); Gamma Globulins 0.6 g/dL (0.8-1.7); INTERPRETATION REPORT
[2021-08-14] MEDS: METOPROLOL TAR 25 MG TAB PO SCH ×2 (05:05→18:06)
[2021-08-14 06:31] LABS: Absolute Lymphocytes (CBC) 0.6 K/uL (0.7-4.9); Basophils % 0.3 % (0-1.3); Hematocrit 36.7 % (39.6-49.0); Lymphocytes % 3.9 % (15.3-44.8); MPV 6.6 fL (7.6-11.3); RBC Red Blood Cell Count 4.33 M/uL (4.33-5.43)
[2021-08-14 07:23] LABS: Albumin 1.8 g/dL (3.4-5.0); Potassium 3.6 mmol/L (3.5-5.1)
[2021-08-14 09:06] LABS: Bilirubin Total 0.5 mg/dL (0.2-1.0)
[2021-08-14] MEDS: RIVAROXABAN 15 MG TABLET PO SCH ×2 (09:45→20:15)
[2021-08-14] MEDS: FOLIC ACID 1 MG TABLET PO SCH (09:45)
[2021-08-14] MEDS: THIAMINE HCL 100 MG TABLET PO SCH (09:45)
[2021-08-14] MEDS: levoFLOXacin 250 MG TAB PO SCH (09:45)
[2021-08-14] MEDS: MEDIHONEY 44 ML TOPICAL TUBE TOP SCH (10:43)
--- NOTE | 2021-08-14 10:53 | P.PN ---
Subjective Date of Service: 08/14/21 Primary Care Provider: Marilin villatoro transfer to Chief Complaint: Pneumonia Seen today, anxious to go home admit to weakness Making urine well via indwelling Orellana . Requesting home health be provided Physical Examination - Vital Signs Temperature: 97 F Blood Pressure: 132/90 Pulse: 99 Respirations: 20 Pulse Ox (%): 95 - Physical Exam General: Alert, In no apparent distress, Oriented x3 HEENT: Atraumatic, Normocephalic, PERRLA Neck: Supple, 2+ carotid pulse no bruit, JVD not distended Respiratory: Normal air movement, Diminished Cardiovascular: Regular rate/rhythm, Normal S1 S2, Edema (TRACE) Gastrointestinal: Normal bowel sounds, Soft and benign, Non-distended Musculoskeletal: No clubbing, Swelling Neurological: Normal speech, Normal strength at 5/5 x4 extr Urinary: Orellana catheter - Studies Microbiology Data (last 24 hrs): 08/09/21 21:25 Wound - Right Foot Gram Stain - Final 08/09/21 21:25 Wound - Right Foot Culture & Sensitivity - Final Pseudomonas Aeruginosa Medications List Reviewed: Yes Assessment And Plan - Current Problems (Diagnosis) (1) Acute renal insufficiency Current Visit: Yes Status: Acute (2) CHF (congestive heart failure) Current Visit: Yes Status: Acute Qualifiers: Heart failure chronicity: unspecified (3) HTN (hypertension) Current Visit: Yes Status: Acute (4) Lesion 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 Lungs: Mild ill-defined opacities in the right mid lung and left lung base. Pleural: No significant pleural effusions or pneumothorax. Cardiac: Enlarged cardiopericardial silhouette Bones: No acute fractures. IMPRESSION: Mild ill-defined bilateral opacities. This could reflect mild pneumonia. A chest CT is pending at time of dictation. Right Foot xray: COMPARISON: Abdomen Acute Series dated 07/25/2021; CHEST SINGLE VIEW dated 07/25/2012; CHEST SINGLE VIEW dated 07/02/2012Foot Right 2 View dated 07/21/2012 FINDINGS: The second toe is dislocated at the level of the MTP joint. Partial amputation of the first toe. Advanced midfoot and hindfoot degenerative changes. Peripheral vascular calcifications. No acute fracture . IMPRESSION: 1. No acute fracture of the right foot. 2. Dislocated second toe at the MTP joint. Right Foot CT: COMPARISON: Foot Right 3 View dated 08/09/2021 TECHNIQUE: Axial noncontrast 2 mm images of the foot and ankle were obtained. Sagittal and coronal reformatted images were generated and reviewed. All CT scans are performed using dose optimization technique as appropriate and may include automated exposure control or mA/KV adjustment according to patient size. FINDINGS: No erosive or destructive bone changes seen to localize osteomyelitis. Osteomyelitis can exist prior to radiographic bone destruction. Soft tissue wound near the tip of the distal fibula shows no air, foreign body or drainable fluid collection. Soft tissue wound is present lateral to the fifth metatarsal head. BB marker placed at this site. There is no air, foreign body or drainable fluid collection at this site. Metallic clip is present in the dorsal soft tissues near the proximal shaft first metatarsal. This is presumed to be from prior surgical procedure. No acute bone process is confirmed. No air or foreign body in the soft tissues. Patient has severe deformity of the foot. There is extensive heterotopic bone formation along the anteromedial margin of the distal tibia. Marked deformity is present at the tibiotalar joint space with deformity and fusion of the talus, calcaneus and navicular bones. Cuboid bone remains unfused. Navicular bone is fused to the 3 cuneiform bones which are fused to each other. There is fusion of the second and third metatarsal bases to the middle and lateral cuneiform bones. There are numerous areas of cystic change within the bony structures. IMPRESSION: As detailed above, no erosive or destructive bone changes seen to indicate osteomyelitis. Osteomyelitis can be present prior to radiographic bone destruction and follow-up imaging can be performed as warranted. No air, foreign body or drainable fluid collections seen within the soft tissues at the known wounds nor elsewhere in the foot. ABUS: COMPARISON: Stone Protocol dated 07/23/2021; Renal Ultrasound-Complete dated 08/10/2021; Chest Single View dated 08/09/2021 FINDINGS: Gallbladder size is normal. Gallbladder is packed with numerous 5 mm or less stones and sludge. No gallbladder wall thickening. Common bile duct is normal with no common duct stone identified. Liver size is normal at 14 cm. Coarsened hepatic echogenicity is present. There is a nodular liver capsule contour. In the upper central right lobe a 2.5 cm rounded hypoechoic mass is present. This is the same location as the CT mass but measures smaller. No correlate in size to the CT lesion of July 23. Lesion size can be variable between 2 different modalities. Geographic changes of fatty infiltration and cirrhosis can cause variability in attenuation on a noncontrast CT study. CT imaging with and without contrast would be recommended if the patient can tolerate nonionic CT contrast. Alternatively, MRI imaging of the liver could be performed. MRI contrast would be optimal but the exam should be adequate without contrast. Mild to moderate amount of ascites is present adjacent to the liver. Overall volume of intraperitoneal ascites was not fully assessed on this focused gallbladder/liver ultrasound. Pancreas, spleen and vasculature were not evaluated on this study. IMPRESSION: Normal size gallbladder filled with sludge and multiple 5 mm or less stones. No gallbladder wall thickening. Liver cirrhosis changes are present. A 2.5 cm hypoechoic masses present upper central right lobe of the liver. This is in the same general location as the 7 cm size lesion seen on CT imaging. True lesion of the liver is still concerning. As detailed above, further imaging with contrast CT would be recommended if tolerable by the patient. Alternatively, MR imaging could be performed, preferably with contrast but acceptable without. Renal US: COMPARISON: Abdomen Exam Limited dated 08/10/2021 FINDINGS: The right kidney measures 9.1 x 4.9 x 5.1 cm. The left kidney measures 8.7 x 6.0 x 4.2 cm. Bilateral renal cortical thinning present along with increased cortical echogenicity consistent with underlying medical renal disease. No hydronephrosis or suspicious renal mass. No bladder wall thickening or mass identified. Approximately 2.4 centimeter mobile echogenic focus is seen within the urinary bladder lumen along with additional echogenic debris. Bladder volume was 320 milliliters. Mild to moderate amount of ascites is present with overall ascites volume not fully evaluated on this renal focused examination. IMPRESSION: Underlying medical renal disease findings with no hydronephrosis or renal mass identified. Small bladder stones and/ or echogenic debris within the bladder lumen. No bladder wall mass or bladder wall thickening identified. CT scan: Chest: The lung demonstrated small patchy areas of alveolar airspace densities within the minimal tree-in-bud distribution involving bilateral upper lobes Small right pleural effusion with comprehensive atelectatic changes. Layering high density material within the area of the compressed lung parenchyma could risks og to aspiration of barium. Small trace of left pleural effusion with layering high density material perhaps corresponding to aspiration of barium Small bilateral pulmonary nodularities involving the right middle lobe and inferior finger segment the largest one measuring 8.4 mm medial right cardiac phrenic angle. Possible metastatic disease cannot be excluded. Trachea and mainstem bronchus demonstrated to be unremarkable. Minimal trace of pericardial effusion. Heart is not enlarged. Minimal mitral annular calcification. Minimal internal aortic arch calcification. No significant mediastinal or hilar adenopathy. Left-sided vertebral body lytic lesion C7. Lytic lesion at the lateral aspect of the second rib. Fracture questionable. Minimal lytic lesion to the lateral right rib. Questionable lytic fracture anterior lateral aspect seventh left rib. Posterior seventh ninth left rib. Moderate large ascites. Nodular surface of the liver noted. Large hypodense lesion right hepatic lobe measuring 8.2 cm previously measured 7.6 cm. Minimal haziness within the anterior left peritoneum. Left greater omentum could respond correspond to ascites with possible peritoneal carcinomatosis. Pancreas, spleen, adrenal glands demonstrate to be normal. No focal lesions noted. Gallbladder noted with cholelithiasis. Kidneys demonstrate to be somewhat atrophic. No evidence of nephrolithiasis or hydronephrosis. Stomach, small bowel and large bowel demonstrates to be within normal range. No bowel dilation or free air. Mild fecal stasis noted. Urinary bladder demonstrates to be within normal range. Prostate gland unremarkable. Aorta with minimal arthrosclerotic disease. Impression: Small patchy areas of alveolar airspace densities within the minimal tree-in-bud distribution involving bilateral upper lobes may correspond to infectious versus inflammatory process Small bilateral pleural effusions with layering high density material within the area of compressed lung parenchyma could correspond to aspiration of barium Lytic lesion at the lateral aspect of the second right rib. Fractures with questionable minimal lytic lesion to the lateral right rib. There is a questionable lytic lesion at the anterior lateral aspect of the seventh left rib. Lytic lesion of the vertebral body of T12. Large hypodense lesion right hepatic lobe measuring 8.2 cm previously 7.6 cm. Minimal haziness within the anterior left perineum/left greater omentum could correspond to ascites or the possibility of peritoneal carcinomatosis. Cholelithiasis. Mild fecal stasis. Venous doppler: Impression: Deep vein fibrosis right superficial femoral vein, proximal throughout distal portion. Deep vein thrombosis within the right anterior tibial vein. Rest of deep vein system demonstrates to be patent Physical exam: General: Alert, In no apparent distress, Oriented x3, Obese Impression: Leukocytosis likely secondary to bilateral upper lobe pneumonia with tree-in-bud distribution versus other etiology with abnormal CT scan showing small bilateral pleural effusions lytic lesions to the second right rib/seventh left rib/T12 vertebral body suspicious for possible underlying cancer or metastatic disease versus cardiopulmonary disease Acute on chronic renal disease stage III with hyperkalemia Acute DVT of the right anterior tibial vein with fibrosis to the right superficial femoral vein Lateral right foot ulcer with chronic deformity to the feet bilateral Enlarged 8.2 cm hypodense lesion right hepatic lobe with noted moderate abdominal ascites and nodularity to the liver complicated with haziness within the anterior left perineum/left greater omentum suspect underlying liver cirrhosis with possible carcinomatosis and liver cancer Hypertension GERD Liver mass with metastasis Nephrolithiasis Presumed neurogenic bladderindwelling Orellana now, failed voiding trial Plan: Leukocytosis likely secondary to bilateral upper lobe pneumonia with tree-in-bud distribution versus other etiology with abnormal CT scan showing small bilateral pleural effusions lytic lesions to the second right rib/seventh left rib/T12 vertebral body suspicious for possible underlying cancer or metastatic disease versus cardiopulmonary disease: Improving leukocytosis Continue antibiotics Plan for discharge home We discussed with case management to arrange for home health Noted liver mass with metastasispatient refusing further intervention now states will follow at the [facility] Acute on chronic renal disease stage III with hyperkalemia: Creatinine marginally improved to 2.4 Of diureticsLasix/spironolactone now Follow with nephrology Acute DVT of the right anterior tibial vein with fibrosis to the right superficial femoral vein: Continue anticoagulation with Eliquis Lateral right foot ulcer with chronic deformity to the feet bilateral: This appears chronic and likely a pressure sore. Patient with chronic deformity to the feet bilateral. Will consult wound care to further evaluate. No evidence of osteomyelitis on CT scan. Patient on IV antibiotic therapy. Enlarged 8.2 cm hypodense lesion right hepatic lobe with noted moderate abdominal ascites and nodularity to the liver complicated with haziness within the anterior left perineum/left greater omentum suspect underlying liver cirrhosis with possible carcinomatosis and liver cancer: Ultrasound and CT scan reviewed. Liver lesion has increased in size since last CT scan. Suspect underlying liver cirrhosis with possible carcinomatosis and liver cancer. Hypertension: Improved GERD: Stable on PPI. DVT PPX: Full dose Lovenox for acute DVT Code status: Full code Discharge Plan: Possible discharge in a.m. if further improvement in creatinine
--- NOTE | 2021-08-14 13:31 | RAD REPORT ---
EXAM DESCRIPTION: RAD - Chest Single View - 08/14/2021 1:19 pm CLINICAL HISTORY: COPD COMPARISON: Chest Single View dated 08/09/2021; Abdomen Acute Series dated 07/25/2021; CHEST SINGLE VIEW dated 07/25/2012; CHEST SINGLE VIEW dated 07/02/2012; Chest Abd Pelvis Wo Con dated 08/09/2021 FINDINGS: Lines: None. Lungs: Increasing prominence of the pulmonary interstitium. Decreased lung volumes. Irregular nodular ity in the right upper lobe is more prominent. Pleural: Bilateral pleural effusions. Cardiac: The heart size is within normal limits. Bones: No acute fractures. Other: IMPRESSION: Increased prominence of the pulmonary interstitium with small effusions which may repres ent a combination of edema and/or pneumonia.
--- NOTE | 2021-08-14 13:52 | PN ---
Date of Progress Note: 08/14/2021 Subjective: The patient was admitted with acute kidney injury secondary to prerenal. The patient found to have metastatic disease from liver mass. Physical Examination: Vital Signs: Blood pressure 121/52, pulse of 104, afebrile. The patient had good urine output of 1 L. Chest: Clear to auscultation. Heart S1, S2. Regular. Abdomen: Soft, ascites. Extremity: Plus edema. Neurologic: Alert. No focality. Difficulty hearing. Laboratory Data: WBC 15.5, H and H 12.2/36.7. Sodium 131, potassium 3.6, bicarb 20, BUN 69, creatinine 2.4 trending down, GFR 26, calcium 9.2. Current Medications: The patient on include; 1. Levaquin. 2. Metoprolol. 3. Lasix on hold. 4. Normal saline. Assessment And Plan: 1. Acute kidney injury secondary to prerenal, recovered, on the trending side. I am going to continue to hold secondary to prerenal/cardiorenal. Looked to me on the normal volume. Currently, the patient is lying flat on room air. I will hold the Lasix for another day and we will discontinue IV fluid and we will follow up the patient closely. 2. Hypertension, controlled, optimal. Continue current treatment. 3. Hyperkalemia secondary to Bactrim. 4. Acute kidney injury, recovered. 5. Hyponatremia secondary to dilutional. Discontinue D5 and we will follow up. 6. Liver mass with metastasis. We will follow up with primary. time spend exam the patient face to face , placing order , review the date lab and radiology , discussed the case with submarine advisory team watch officer including nursing , and other case consultant and hospitalist 45 min JERONIMO Voice ID: [id number] Report ID: [id number] MARGARET
[2021-08-14 21:51] LABS: UR PROTEIN 41.9 mg/dL (<11.9); Urine Protein/Creatinine Ratio 0.37 ratio (<0.15)
[2021-08-15 03:29] VITALS: BMI 32.8
[2021-08-15] MEDS: METOPROLOL TAR 25 MG TAB PO SCH (05:21)
--- NOTE | 2021-08-15 06:08 | P.PN ---
Subjective Date of Service: 08/15/21 Primary Care Provider: [facility] villatoro transfer to Chief Complaint: Pneumonia Subjective: Other (Feels very weak. [place].) Physical Examination - Vital Signs Temperature: 97 F Blood Pressure: 126/58 Pulse: 77 Respirations: 18 Pulse Ox (%): 94 - Physical Exam General: Other (appears chronically ill) HEENT: Atraumatic, Normocephalic Neck: Supple Respiratory: Diminished Cardiovascular: No rubs, No murmurs Gastrointestinal: Distended Musculoskeletal: No clubbing Integumentary: No warmth Neurological: Normal speech, Normal tone Urinary: Other (no flank pain) External genitalia: Deferred Rectal: Deferred - Studies Microbiology Data (last 24 hrs): 08/09/21 22:15 Blood - Blood Aerobic Blood Culture - Final No growth in 5 days. 08/09/21 22:15 Blood - Blood Anaerobic Blood Culture - Final No growth in 5 days. 08/09/21 21:50 Blood - Blood Aerobic Blood Culture - Final No growth in 5 days. 08/09/21 21:50 Blood - Blood Anaerobic Blood Culture - Final No growth in 5 days. Medications List Reviewed: Yes Assessment And Plan - Plan 1. Acute kidney injury due to multiple causes. SCr improving to 2.5. [place] po fluid intake. 2. Leukocytosis secondary to bilateral upper lobe pneumonia. +R foot wound. Continue antibiotics, adjust to renal dose. The patient will need workup to rule out metastatic disease. There is possible pulmonary nodule present on the CT scan. 3. Liver cirrhosis w/ ascites w/ R lobe lesion & T12 vertebra & rib lytic lesions. +liver synthetic dysfxn. +lactic acidosis. F/u AFP & ammonia level. 4. Volume overload w/ pleural & pericardial effusion & ascites & BLE edema & +JVD. Cont lasix. 5. Hyponatremia. Serum Na 131. Lasix as above. Encourage po solid food intake. Avoid Na load po or IV as he is already Na overloaded. If serum Na drops further, give Tolvaptan. 6. Hyperkalemia. Resolved. Cont lasix. Continue hydration. Patient was taking spironolactone and Bactrim, which are contributory to hyperkalemia and renal function decline. 7. Secondary hyperaldosteronism. Seen on urine chem on 08/12. Likely 2/2 liver disease. No e/o pulmo Htn on chest CT. Cont lasix. Start tomasa 25 mg po daily. 8. Respi alkalosis likely chronic, likely 2/2 chronic liver dse. No indication for bicarb therapy. 9. RLE DVT. Lovenox 10. Hypercalcemia. Corrected serum Ca 10.9. Suspect 2/2 underlying metastatic process + hypomobility. Serum iPTH low, 25OHD sl. low. F/u PTH-rP.
[2021-08-15] MEDS: RIVAROXABAN 15 MG TABLET PO SCH (09:57)
[2021-08-15] MEDS: FOLIC ACID 1 MG TABLET PO SCH (09:57)
[2021-08-15] MEDS: levoFLOXacin 250 MG TAB PO SCH (09:57)
[2021-08-15] MEDS: THIAMINE HCL 100 MG TABLET PO SCH (09:57)
[2021-08-15] MEDS: MEDIHONEY 44 ML TOPICAL TUBE TOP SCH (09:58)
[2021-08-15] MEDS ORDERED: SPIRONOLACTONE 25 MG TABLET PO SCH (11:40)
--- NOTE | 2021-08-15 13:14 | P.DS ---
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 Lungs: Mild ill-defined opacities in the right mid lung and left lung base. Pleural: No significant pleural effusions or pneumothorax. Cardiac: Enlarged cardiopericardial silhouette Bones: No acute fractures. IMPRESSION: Mild ill-defined bilateral opacities. This could reflect mild pneumonia. A chest CT is pending at time of dictation. Right Foot xray: COMPARISON: Abdomen Acute Series dated 07/25/2021; CHEST SINGLE VIEW dated 07/25/2012; CHEST SINGLE VIEW dated 07/02/2012Foot Right 2 View dated 07/21/2012 FINDINGS: The second toe is dislocated at the level of the MTP joint. Partial amputation of the first toe. Advanced midfoot and hindfoot degenerative changes. Peripheral vascular calcifications. No acute fracture . IMPRESSION: 1. No acute fracture of the right foot. 2. Dislocated second toe at the MTP joint. Right Foot CT: COMPARISON: Foot Right 3 View dated 08/09/2021 TECHNIQUE: Axial noncontrast 2 mm images of the foot and ankle were obtained. Sagittal and coronal reformatted images were generated and reviewed. All CT scans are performed using dose optimization technique as appropriate and may include automated exposure control or mA/KV adjustment according to patient size. FINDINGS: No erosive or destructive bone changes seen to localize osteomyelitis. Osteomyelitis can exist prior to radiographic bone destruction. Soft tissue wound near the tip of the distal fibula shows no air, foreign body or drainable fluid collection. Soft tissue wound is present lateral to the fifth metatarsal head. BB marker placed at this site. There is no air, foreign body or drainable fluid collection at this site. Metallic clip is present in the dorsal soft tissues near the proximal shaft first metatarsal. This is presumed to be from prior surgical procedure. No acute bone process is confirmed. No air or foreign body in the soft tissues. Patient has severe deformity of the foot. There is extensive heterotopic bone formation along the anteromedial margin of the distal tibia. Marked deformity is present at the tibiotalar joint space with deformity and fusion of the talus, calcaneus and navicular bones. Cuboid bone remains unfused. Navicular bone is fused to the 3 cuneiform bones which are fused to each other. There is fusion of the second and third metatarsal bases to the middle and lateral cuneiform bones. There are numerous areas of cystic change within the bony structures. IMPRESSION: As detailed above, no erosive or destructive bone changes seen to indicate osteomyelitis. Osteomyelitis can be present prior to radiographic bone destruction and follow-up imaging can be performed as warranted. No air, foreign body or drainable fluid collections seen within the soft tissues at the known wounds nor elsewhere in the foot. ABUS: COMPARISON: Stone Protocol dated 07/23/2021; Renal Ultrasound-Complete dated 08/10/2021; Chest Single View dated 08/09/2021 FINDINGS: Gallbladder size is normal. Gallbladder is packed with numerous 5 mm or less stones and sludge. No gallbladder wall thickening. Common bile duct is normal with no common duct stone identified. Liver size is normal at 14 cm. Coarsened hepatic echogenicity is present. There is a nodular liver capsule contour. In the upper central right lobe a 2.5 cm rounded hypoechoic mass is present. This is the same location as the CT mass but measures smaller. No correlate in size to the CT lesion of July 23. Lesion size can be variable between 2 different modalities. Geographic changes of fatty infiltration and cirrhosis can cause variability in attenuation on a noncontrast CT study. CT imaging with and without contrast would be recommended if the patient can tolerate nonionic CT contrast. Alternatively, MRI imaging of the liver could be performed. MRI contrast would be optimal but the exam should be adequate without contrast. Mild to moderate amount of ascites is present adjacent to the liver. Overall volume of intraperitoneal ascites was not fully assessed on this focused gallbladder/liver ultrasound. Pancreas, spleen and vasculature were not evaluated on this study. IMPRESSION: Normal size gallbladder filled with sludge and multiple 5 mm or less stones. No gallbladder wall thickening. Liver cirrhosis changes are present. A 2.5 cm hypoechoic masses present upper central right lobe of the liver. This is in the same general location as the 7 cm size lesion seen on CT imaging. True lesion of the liver is still concerning. As detailed above, further imaging with contrast CT would be recommended if tolerable by the patient. Alternatively, MR imaging could be performed, preferably with contrast but acceptable without. Renal US: COMPARISON: Abdomen Exam Limited dated 08/10/2021 FINDINGS: The right kidney measures 9.1 x 4.9 x 5.1 cm. The left kidney measures 8.7 x 6.0 x 4.2 cm. Bilateral renal cortical thinning present along with increased cortical echogenicity consistent with underlying medical renal disease. No hydronephrosis or suspicious renal mass. No bladder wall thickening or mass identified. Approximately 2.4 centimeter mobile echogenic focus is seen within the urinary bladder lumen along with additional echogenic debris. Bladder volume was 320 milliliters. Mild to moderate amount of ascites is present with overall ascites volume not fully evaluated on this renal focused examination. IMPRESSION: Underlying medical renal disease findings with no hydronephrosis or renal mass identified. Small bladder stones and/ or echogenic debris within the bladder lumen. No bladder wall mass or bladder wall thickening identified. CT scan: Chest: The lung demonstrated small patchy areas of alveolar airspace densities within the minimal tree-in-bud distribution involving bilateral upper lobes Small right pleural effusion with comprehensive atelectatic changes. Layering high density material within the area of the compressed lung parenchyma could risks og to aspiration of barium. Small trace of left pleural effusion with layering high density material perhaps corresponding to aspiration of barium Small bilateral pulmonary nodularities involving the right middle lobe and inferior finger segment the largest one measuring 8.4 mm medial right cardiac phrenic angle. Possible metastatic disease cannot be excluded. Trachea and mainstem bronchus demonstrated to be unremarkable. Minimal trace of pericardial effusion. Heart is not enlarged. Minimal mitral annular calcification. Minimal internal aortic arch calcification. No significant mediastinal or hilar adenopathy. Left-sided vertebral body lytic lesion C7. Lytic lesion at the lateral aspect of the second rib. Fracture questionable. Minimal lytic lesion to the lateral right rib. Questionable lytic fracture anterior lateral aspect seventh left rib. Posterior seventh ninth left rib. Moderate large ascites. Nodular surface of the liver noted. Large hypodense lesion right hepatic lobe measuring 8.2 cm previously measured 7.6 cm. Minimal haziness within the anterior left peritoneum. Left greater omentum could respond correspond to ascites with possible peritoneal carcinomatosis. Pancreas, spleen, adrenal glands demonstrate to be normal. No focal lesions noted. Gallbladder noted with cholelithiasis. Kidneys demonstrate to be somewhat atrophic. No evidence of nephrolithiasis or hydronephrosis. Stomach, small bowel and large bowel demonstrates to be within normal range. No bowel dilation or free air. Mild fecal stasis noted. Urinary bladder demonstrates to be within normal range. Prostate gland unremarkable. Aorta with minimal arthrosclerotic disease. Impression: Small patchy areas of alveolar airspace densities within the minimal tree-in-bud distribution involving bilateral upper lobes may correspond to infectious versus inflammatory process Small bilateral pleural effusions with layering high density material within the area of compressed lung parenchyma could correspond to aspiration of barium Lytic lesion at the lateral aspect of the second right rib. Fractures with questionable minimal lytic lesion to the lateral right rib. There is a questionable lytic lesion at the anterior lateral aspect of the seventh left rib. Lytic lesion of the vertebral body of T12. Large hypodense lesion right hepatic lobe measuring 8.2 cm previously 7.6 cm. Minimal haziness within the anterior left perineum/left greater omentum could correspond to ascites or the possibility of peritoneal carcinomatosis. Cholelithiasis. Mild fecal stasis. Venous doppler: Impression: Deep vein fibrosis right superficial femoral vein, proximal throughout distal portion. Deep vein thrombosis within the right anterior tibial vein. Rest of deep vein system demonstrates to be patent Physical exam: General: Alert, In no apparent distress, Oriented x3, Obese Hospital course Patient was admitted for bilateral upper lobe pneumonia with tree-in-bud distribution as well as bilateral pleural effusion. She was started on empirical antibiotics. His leukocytosis significantly improved. He was noted with 2nd-7th rib T12 vertebral body lesions worrisome for metastatic disease but patient declined further evaluation now wants to be evaluated [facility] the [facility] although [facility]. He was noted with neurogenic bladder and inability to void and a Orellana was placed. Urology recommended keeping Orellana in situ. Further work-up with CT scan shows right hepatic hypodense lesion of 8.2 cm worrisome for possible liver cancer. Patient will be discharged home today, to continue with home care, to continue follow-up with primary care team at [facility] for further work-up of liver mass with presumed metastasis to the lungs and omentum. Hospital course was also complicated with acute kidney injury on CKD but which improved with diuresis. He was evaluated by nephrology during hospitalization Vital Signs/Physical Exam: Temp Pulse Resp BP Pulse Ox 97.0 F 78 20 145/64 H 92 08/15/21 08:00 08/15/21 08:00 08/15/21 08:00 08/15/21 08:00 08/15/21 08:00 General: Alert, Oriented x3, Obese HEENT: Atraumatic, Normocephalic Neck: Supple, 2+ carotid pulse no bruit, JVD not distended Respiratory: Normal air movement, Diminished Cardiovascular: Regular rate/rhythm, Normal S1 S2, Edema Gastrointestinal: Normal bowel sounds, Soft and benign, Non-distended Musculoskeletal: No clubbing, Swelling Neurological: Normal speech, Normal strength at 5/5 x4 extr, Normal tone Urinary: Orellana catheter Laboratory Data at Discharge: WBC 15.50 K/uL (4.3-10.9) H 08/14/21 06:18 Hgb 12.2 g/dL (13.6-17.9) L 08/14/21 06:18 Hct 36.7 % (39.6-49.0) L 08/14/21 06:18 Plt Count 342 K/uL (152-406) 08/14/21 06:18 PT 12.9 SECONDS (9.5-12.5) H 08/09/21 21:10 INR 1.12 08/09/21 21:10 Sodium 131 mmol/L (136-145) L 08/14/21 06:18 Potassium 3.6 mmol/L (3.5-5.1) 08/14/21 06:18 BUN 69 mg/dL (7-18) H 08/14/21 06:18 Creatinine 2.46 mg/dL (0.55-1.3) H 08/14/21 06:18 Glucose 135 mg/dL (74-106) H 08/14/21 06:18 Uric Acid 9.6 mg/dL (3.5-7.2) H 08/10/21 03:17 Phosphorus 5.1 mg/dL (2.5-4.9) H 08/13/21 06:49 Magnesium 2.4 mg/dL (1.8-2.4) 08/13/21 06:49 Total Bilirubin 0.5 mg/dL (0.2-1.0) 08/14/21 06:18 AST 54 U/L (15-37) H 08/14/21 06:18 ALT 33 U/L (12-78) 08/14/21 06:18 Alkaline Phosphatase 379 U/L (45-117) H 08/14/21 06:18 Triglycerides 138 mg/dL (<150) 08/10/21 03:17 Cholesterol 125 mg/dL (<200) 08/10/21 03:17 HDL Cholesterol 22 mg/dL (40-60) L 08/10/21 03:17 Cholesterol/HDL Ratio 5.68 08/10/21 03:17 Lipase 56 U/L (73-393) L 08/09/21 21:10 Home Medications: Furosemide 1 tab PO DAILY 08/10/21 Metoprolol Tartrate 12.5 mg PO DAILY 08/10/21 Furosemide [Lasix] 40 mg PO BID #60 tablet 08/15/21 Metoprolol Tartrate [Lopressor*] 25 mg PO BID 6AM 6PM #60 tab 08/15/21 Rivaroxaban [Xarelto*] 15 mg PO BID #20 tablet 08/15/21 Spironolactone [Aldactone*] 25 mg PO DAILY #30 tab 08/15/21 levoFLOXacin [Levaquin*] 250 mg PO DAILY #5 tab 08/15/21 traMADol HCL [Ultram*] 50 mg PO Q6H PRN #30 tab 08/15/21 New Medications: Spironolactone [Aldactone*] 25 mg PO DAILY #30 tab Furosemide [Lasix] 40 mg PO BID #60 tablet levoFLOXacin [Levaquin*] 250 mg PO DAILY #5 tab Metoprolol Tartrate [Lopressor*] 25 mg PO BID 6AM 6PM #60 tab traMADol HCL [Ultram*] 50 mg PO Q6H PRN #30 tab PRN Reason: Pain Scale 2-4 (Mild) Rivaroxaban [Xarelto*] 15 mg PO BID #20 tablet Diet: Renal Activity: Ad tremaine Followup: NONE,NONE [Primary Care Provider] - Time spent managing pt's care (in minutes): 35
[2021-08-15 16:34] VITALS: O2SAT 91
[2021-08-15 23:10] VITALS: BP 126/58; TEMP 97
--- NOTE | 2021-08-15 23:18 | CON ---
Date of Consultation: 08/10/2021 Chief Complaint: Acute kidney injury associated with hyperkalemia and hyponatremia. History Of Present Illness: The patient is a 76-year-old man with history of hypertension, who prese nted to emergency room with generalized pain, weakness, cough, and production of sputum over the last 2 days. The patient was evaluated in the emergency room and was found to [place] [address], platelet count was 548, potassium 5.6. Sodium 141, bicarbonate 20, BUN 52, creatinine 1.53, lactic acid was 2.8, calcium 10.1, magnesium 2.6. BNP 624. Procalcito harper 1.57. TSH 1.78. Urinalysis did not show active urinary sediment. COVID test was negative and c hest x-ray demonstrated bilateral opacities, which could reflect pneumonia. CT scan of the abdomen a nd pelvis without contrast showed areas of alveolar densities. Renal ultrasound did not show hydrone phrosis, although there is possible bladder stone present. The patient denies urinary symptoms. Cong es renal colic, hematuria, dysuria. He is tolerating p.o. intake. He has hearing impairment, althou gh he denies complaints. Review of Systems: Constitutional: Denies fever or chills. Eyes: Denies vision change. Ears, Nose, Mouth, and Throat: Denies sore throat or earache. Respiratory: Has cough, increasing weakness. Denies hemoptysis. : Denies dysuria, hematuria, incomplete voiding. All other systems reviewed and all are negative. Past Medical History: Hypertension related to nonhealing wound to lower extremities. Family History: No kidney disease. Social History: Never smoked. No alcohol. No illicit drugs. Physical Examination: General: Patient is awake, alert, follows commands. Eyes: Anicteric sclerae. EOMI. Ear, Nose, Mouth, and Throat: Oral mucosa moist. No pallor. Neck: Supple. No bruits. Lungs: Clear to auscultation bilaterally. Heart: S1, S2. Abdomen: Soft, benign. Extremities: Edema and chronic dermatitis present in both pretibial areas. Laboratory Data: WBC 21.1, hemoglobin 14.2, hematocrit 42.7, platelet count 548. Sodium 141, potass ium 5.6, BUN 42, creatinine 1.53, glucose 111, magnesium 2.6, lipase 56. Impression And Plan: 1.Acute kidney injury due to multiple COVID. The patient was taking Bactrim at home for presumptive urinary tract infection and prostatitis. The patient will need a urology consultation for possible bladder stone. 2.Leukocytosis, secondary to bilateral upper lobe pneumonia. The patient will continue antibiotics. The patient will have a workup done to rule out metastatic disease. There is a possible pulmonary nodule present on CT scan. Small bilateral pleural effusion and lytic lesions present in the 2nd rig ht rib as well as lateral 7th left rib, vertebral peritoneal carcinomatosis. 3.Acute kidney injury with hyperkalemia. Continue hydration. The patient was taking spironolactone and Bactrim which is contributory to hyperkalemia. Continue normal saline for hydration. The patie nt may require Kayexalate. The patient was found to have possible bladder stone. The patient will n eed a urology consultation and cystoscopy. Further workup shows metastatic disease per primary team visit. EB/MODL Voice ID: [id number] Report ID: [id number]
[2021-08-17 18:41] LABS: HBsAG Nonreactive (Nonreactive)
== END 2021-08-15 17:36 | disposition home or self-care (01) | DRG 194 ==
LOC: ER 20:24 → ERHOLD 08-10 00:35 → 2ND 08-10 01:34
PROVIDERS: ADMIT Family Medicine; ATTEND Internal Medicine
DX: J18.9 Pneumonia, unspecified organism (principal); N17.9 Acute kidney failure, unspecified; I82.411 Acute embolism and thrombosis of right femoral vein; I82.441 Acute embolism and thrombosis of right tibial vein; R18.8 Other ascites; N39.0 Urinary tract infection, site not specified; E87.1 Hypo-osmolality and hyponatremia; E87.3 Alkalosis; I13.0 Hypertensive heart and chronic kidney disease with heart failure and stage 1 through stage 4 chronic kidney disease, or unspecified chronic kidney disease; I50.9 Heart failure, unspecified; N18.30 Chronic kidney disease, stage 3 unspecified; E11.22 Type 2 diabetes mellitus with diabetic chronic kidney disease; E11.621 Type 2 diabetes mellitus with foot ulcer; L97.519 Non-pressure chronic ulcer of other part of right foot with unspecified severity; D72.829 Elevated white blood cell count, unspecified; K21.9 Gastro-esophageal reflux disease without esophagitis; N41.9 Inflammatory disease of prostate, unspecified; N28.9 Disorder of kidney and ureter, unspecified; E83.52 Hypercalcemia; K74.60 Unspecified cirrhosis of liver; E26.1 Secondary hyperaldosteronism; K76.9 Liver disease, unspecified; E87.5 Hyperkalemia; E66.9 Obesity, unspecified; Z68.32 Body mass index [BMI] 32.0-32.9, adult; Z88.8 Allergy status to other drugs, medicaments and biological substances; Z88.1 Allergy status to other antibiotic agents; Z91.010 Allergy to peanuts; Z79.899 Other long term (current) drug therapy; Z85.05 Personal history of malignant neoplasm of liver; Z20.822 Contact with and (suspected) exposure to COVID-19
CPT/HCPCS: 36415; 71045; 71250; 73700; 74176; 76705; 76770; 80048; 80053; 80061; 80074; 80076; 81001; 81003; 82105; 82140; 82306; 82550; 82570; 82805; 83605; 83690; 83735; 83880; 83935; 83970; 84100; 84132; 84145; 84156; 84165; 84166; 84300; 84439; 84443; 84484; 84550; 85025; 85610; 86334; 87040; 87070; 87077; 87086; 87088; 87186; 87205; 87389; 93005; 93306; 93970; 94010; 96372; 96374; 99251; 99285; J1650; J1940; J2543; J7030; P9047; U0003